=== PATIENT | female | born 1950 | race Caucasian/White ===

== ENCOUNTER 2019-08-20 12:05 | Emergency (ER) | payer MEDICARE ==
[~2019-08-20] VITALS: Ht 165.1 cm; Wt 74.8 kg
[~2019-08-20 12:05] MED LIST: ALBU90OI61 INH; ALPR1 PO; ASCO250CH PO; ASPI81EC PO; ATEN25 PO; AZIT250 PO; CALCAVITDA PO; CEFU250 PO; CHOL10002 PO; CITA20 PO; CODGUAEL PO; CYCL10 PO; FISH1000 PO; FLUSAL1005 IH; GABA100 PO; GLUC500 PO; GLUCHON PO; HYDACE5 PO; IBUP200 PO; IBUP400 PO; LEVFLO500 PO; LORA10ER PO; MELO7.5 PO; METCAR500 PO; MONT10T PO; MULVITMIND PO; OMEP40CA12 PO; OSCAL PO; OXYACE5T PO; PAIN MED; RXCODGUASY PO; SULTRIDS PO; TOCO400 PO; TOLT2 PO; TRAZ50 PO
[2019-08-20 12:41] LABS: Source, Urine Clean Catch
[2019-08-20 12:45] LABS: Blood, Urine 1+ (Neg); Glucose Qualitative, Urine Neg (Neg); Ketones, Urine 1+ (Neg); Leukocyte Esterase, Urine 2+ (Neg); Nitrite, Urine Pos (Neg); Protein, Urine 2+ (Neg); Specific Gravity, Urine 1.015 (1.003-1.022); Urobilinogen, Urine 4+ (Normal)
[2019-08-20 12:57] LABS: Bilirubin, Urine 3+ (Neg)
[2019-08-20 12:58] LABS: Appearance, Urine Clear (Clear); Color, Urine Orange (P-Yellow)
[2019-08-20 13:00] LABS: Squamous Epithelial Cells Few /hpf (Few)
[2019-08-20 13:00] LABS: BASOPHILS ABSOLUTE AUTO 0.07 K/mm3 (0.00-0.23); BASOPHILS PERCENT AUTO 1 % (0-2); EOSINOPHILS ABSOLUTE AUTO 0.23 K/mm3 (0.00-0.68); EOSINOPHILS PERCENT AUTO 2 % (0-6); Hematocrit 42.1 % (33.0-51.0); Hemoglobin 13.6 g/dL (11.5-16.0); IMMATURE GRAN ABSOLUTE AUTO 0.07 K/mm3 (0.00-0.10); IMMATURE GRAN PERCENT AUTO 1 % (0-1); LYMPHOCYTES ABSOLUTE AUTO 1.55 K/mm3 (0.84-5.20); LYMPHOCYTES PERCENT AUTO 11 % (21-46); MONOCYTES ABSOLUTE AUTO 0.92 K/mm3 (0.16-1.47); MONOCYTES PERCENT AUTO 7 % (4-13); Mean Corpuscular HGB 31.6 pg (26.0-34.0); Mean Corpuscular HGB Conc 32.3 g/dL (31.5-36.5); Mean Corpuscular Volume 98 fL (80-100); Mean Platelet Volume 9.4 fL (9.1-12.4); NEUTROPHILS ABSOLUTE AUTO 11.09 K/mm3 (1.96-9.15); NEUTROPHILS PERCENT AUTO 80 % (41-73); Platelet Count 311 K/mm3 (150-400); RDW Coefficient Variation 12.4 % (11.7-14.2); RDW Standard Deviation 45.1 fL (35.1-46.3); Red Blood Cell Count 4.31 M/mm3 (3.80-5.20); White Blood Cell Count 13.93 K/mm3 (4.00-11.30)
[2019-08-20 13:01] LABS: Bacteria Few /hpf; Mucus Light (0-Heavy)
[2019-08-20 13:23] LABS: Albumin, Blood 3.5 g/dL (3.4-5.0); Bilirubin, Total 0.6 mg/dL (0.1-1.0); Bun/Creatinine Ratio 12.6 (12.0-20.0); Calcium, Blood 8.8 mg/dL (8.5-10.1); Creatinine, Blood 1.35 mg/dL (0.40-1.00); Globulin, Blood 3.6 g/dL (2.2-4.0); Potassium, Blood 3.7 mmol/L (3.5-5.5); Total Protein, Blood 7.1 g/dL (6.4-8.2)
[2019-08-20 14:55] LABS: Source, Urine Catheter
[2019-08-20 14:58] LABS: Appearance, Urine Clear (Clear); Blood, Urine Neg (Neg); Color, Urine Yellow (P-Yellow); Glucose Qualitative, Urine Neg (Neg); Ketones, Urine 1+ (Neg); Leukocyte Esterase, Urine 1+ (Neg); Nitrite, Urine Pos (Neg); Protein, Urine Neg (Neg); Urobilinogen, Urine 2+ (Normal)
[2019-08-20 15:21] LABS: Bilirubin, Urine 2+ (Neg)
[2019-08-20 15:35] LABS: Bacteria Mod /hpf; Red Blood Cells, Urine 0-2 /hpf (0-2); Squamous Epithelial Cells Few /hpf (Few)
== END 2019-08-20 19:27 | disposition short-term general hospital (02) ==
LOC: ER 12:05
PROVIDERS: Physician Assistant
DX: N13.6 Pyonephrosis (principal); I10 Essential (primary) hypertension; J44.9 Chronic obstructive pulmonary disease, unspecified; K21.9 Gastro-esophageal reflux disease without esophagitis; Z88.0 Allergy status to penicillin; Z79.899 Other long term (current) drug therapy; Z79.82 Long term (current) use of aspirin; Z79.51 Long term (current) use of inhaled steroids
CPT/HCPCS: 36415; 74176; 80053; 81001; 83605; 83690; 85025; 87040; 87086; 96361; 96365; 96375; 96376; 99285-25; J0744; J1170; J2405; J7030; J7060; P9612

== ENCOUNTER → 2020-09-04 | Outpatient (CLI) | payer MEDICARE | LOC: LAB SHORT 16:11 | DX: R35.0 Frequency of micturition (principal) | CPT/HCPCS: 87077; 87086; 87186 ==

== ENCOUNTER → 2021-01-31 | Outpatient (CLI) | payer MEDICARE, OTHER ==
[~2021-01-31] MED LIST changes: +ABILIFY MYCITE5 M2 PO; +AMLO5 PO; +BUSP5 PO; +LOSA25 PO; +NITR100CA PO; +OXYB5 PO; +TESSALON PERLE100 MG PO; +TIZA4 PO; +TOPI50 PO; +VIIBRYD40 MG PO
== END | disposition home or self-care (01) ==
LOC: LAB 16:36 → LAB SHORT 16:36
DX: N39.0 Urinary tract infection, site not specified (principal)
CPT/HCPCS: 87077; 87086; 87186

== ENCOUNTER → 2021-03-12 | Outpatient (CLI) | payer MEDICARE, OTHER | LOC: LAB SHORT 11:45 → LAB 11:45 | DX: R39.15 Urgency of urination (principal); Z88.0 Allergy status to penicillin | CPT/HCPCS: 87077; 87086; 87147; 87186 ==

== ENCOUNTER 2021-03-18 05:49 | Inpatient (IN) | payer MEDICARE ==
[~2021-03-18] VITALS: Ht 165.1 cm; Wt 74.8 kg
[~2021-03-18 05:49] MED LIST changes: -ABILIFY MYCITE5 M2 PO; -AMLO5 PO; -BUSP5 PO; -LOSA25 PO; -NITR100CA PO; -OXYB5 PO; -TESSALON PERLE100 MG PO; -TIZA4 PO; -TOPI50 PO; -VIIBRYD40 MG PO
[2021-03-18 06:51] LABS: BASOPHILS ABSOLUTE AUTO 0.01 K/mm3 (0.00-0.23); BASOPHILS PERCENT AUTO 0 % (0-2); EOSINOPHILS PERCENT AUTO 0 % (0-6); Hematocrit 43.8 % (33.0-51.0); Hemoglobin 14.3 g/dL (11.5-16.0); IMMATURE GRAN ABSOLUTE AUTO 0.02 K/mm3 (0.00-0.10); IMMATURE GRAN PERCENT AUTO 0 % (0-1); LYMPHOCYTES ABSOLUTE AUTO 0.61 K/mm3 (0.84-5.20); LYMPHOCYTES PERCENT AUTO 11 % (21-46); MONOCYTES ABSOLUTE AUTO 0.37 K/mm3 (0.16-1.47); MONOCYTES PERCENT AUTO 7 % (4-13); Mean Corpuscular HGB 30.3 pg (26.0-34.0); Mean Corpuscular HGB Conc 32.6 g/dL (31.5-36.5); Mean Corpuscular Volume 93 fL (80-100); Mean Platelet Volume 10.5 fL (9.1-12.4); NEUTROPHILS ABSOLUTE AUTO 4.61 K/mm3 (1.96-9.15); NEUTROPHILS PERCENT AUTO 82 % (41-73); Platelet Count 162 K/mm3 (150-400); RDW Coefficient Variation 12.5 % (11.7-14.2); RDW Standard Deviation 42.8 fL (35.1-46.3); Red Blood Cell Count 4.72 M/mm3 (3.80-5.20); White Blood Cell Count 5.62 K/mm3 (4.00-11.30)
[2021-03-18 07:08] LABS: Alanine Aminotransfer (ALT/SGP 25 U/L (12-78); Albumin, Blood 3.4 g/dL (3.4-5.0); Albumin/Globulin Ratio 0.9 (0.8-1.8); Alk Phos 61 U/L (50-136); Anion Gap 8 mmol/L (6-16); Aspartate Aminotrans (AST/SGOT 39 U/L (12-37); Bilirubin, Total 0.6 mg/dL (0.1-1.0); Blood Urea Nitrogen 16 mg/dL (8-24); Bun/Creatinine Ratio 22.5 (12.0-20.0); CO2, Blood 22 mmol/L (21-32); Calcium, Blood 8.7 mg/dL (8.5-10.1); Chloride, Blood 106 mmol/L (98-108); Creatinine, Blood 0.71 mg/dL (0.40-1.00); Globulin, Blood 3.9 g/dL (2.2-4.0); Glomerular Filtration Rate >60 (60-); Glucose, Blood 95 mg/dL (70-99); Potassium, Blood 3.8 mmol/L (3.5-5.5); Sodium, Blood 136 mmol/L (136-145); Total Protein, Blood 7.3 g/dL (6.4-8.2); Troponin I <0.015 ng/mL (0.000-0.040)
[2021-03-18 07:38] LABS: Source, Urine Clean Catch
[2021-03-18 07:45] LABS: Appearance, Urine Clear (Clear); Bilirubin, Urine Neg (Neg); Blood, Urine 4+ (Neg); Color, Urine Yellow (P-Yellow); Glucose Qualitative, Urine Neg (Neg); Ketones, Urine 4+ (Neg); Leukocyte Esterase, Urine 1+ (Neg); Nitrite, Urine Neg (Neg); Protein, Urine 2+ (Neg); Specific Gravity, Urine 1.015 (1.003-1.022); Urobilinogen, Urine NORM (Normal)
[2021-03-18 07:52] LABS: Amorphous Mod (0-Heavy); Bacteria Few /hpf; Squamous Epithelial Cells Mod /hpf (Few)
[2021-03-18] MEDS ORDERED: TIZA4 PO (12:01)
[2021-03-18] MEDS ORDERED: LOSA25 PO (12:01)
[2021-03-18] MEDS ORDERED: BUSP5 PO (12:02)
[2021-03-18] MEDS ORDERED: VIIBRYD40 MG PO (12:02)
[2021-03-18] MEDS ORDERED: TOPI50 PO (12:03)
[2021-03-18] MEDS ORDERED: AMLO5 PO (12:03)
[2021-03-18] MEDS ORDERED: TESSALON PERLE100 MG PO (12:04)
[2021-03-18] MEDS ORDERED: MONT10T PO (12:04)
[2021-03-18] MEDS ORDERED: NITR100CA PO (12:05)
[2021-03-18] MEDS ORDERED: OXYB5 PO (12:05)
[2021-03-18] MEDS ORDERED: ABILIFY MYCITE5 M2 PO (12:05)
--- NOTE | 2021-03-18 16:40 | NUR ---
SHIFT SUMMARY ED ADMIT AT LUNCHTIME. PATIENT SETTLED INTO ROOM. PATIENT DENIES PAIN, NAUSEA, AND SHORTNESS OF BREATH. PATIENT UP SBA TO BR. EATING AND DRINKING WELL. OCCASSIONAL CONFUSION, BED ALARM ON. SON AT BEDSIDE FOR ADMISSION.
[2021-03-19 04:56] LABS: BASOPHILS ABSOLUTE AUTO 0.02 K/mm3 (0.00-0.23); BASOPHILS PERCENT AUTO 0 % (0-2); EOSINOPHILS ABSOLUTE AUTO 0.04 K/mm3 (0.00-0.68); EOSINOPHILS PERCENT AUTO 1 % (0-6); Hematocrit 39.3 % (33.0-51.0); Hemoglobin 12.9 g/dL (11.5-16.0); IMMATURE GRAN ABSOLUTE AUTO 0.04 K/mm3 (0.00-0.10); IMMATURE GRAN PERCENT AUTO 1 % (0-1); LYMPHOCYTES ABSOLUTE AUTO 1.28 K/mm3 (0.84-5.20); LYMPHOCYTES PERCENT AUTO 24 % (21-46); MONOCYTES ABSOLUTE AUTO 0.32 K/mm3 (0.16-1.47); MONOCYTES PERCENT AUTO 6 % (4-13); Mean Corpuscular HGB 30.1 pg (26.0-34.0); Mean Corpuscular HGB Conc 32.8 g/dL (31.5-36.5); Mean Corpuscular Volume 92 fL (80-100); Mean Platelet Volume 10.1 fL (9.1-12.4); NEUTROPHILS ABSOLUTE AUTO 3.58 K/mm3 (1.96-9.15); NEUTROPHILS PERCENT AUTO 68 % (41-73); Platelet Count 156 K/mm3 (150-400); RDW Coefficient Variation 12.5 % (11.7-14.2); RDW Standard Deviation 42.1 fL (35.1-46.3); Red Blood Cell Count 4.29 M/mm3 (3.80-5.20); White Blood Cell Count 5.28 K/mm3 (4.00-11.30)
[2021-03-19 05:27] LABS: Anion Gap 8 mmol/L (6-16); Blood Urea Nitrogen 10 mg/dL (8-24); Bun/Creatinine Ratio 16.4 (12.0-20.0); CO2, Blood 21 mmol/L (21-32); Calcium, Blood 7.9 mg/dL (8.5-10.1); Chloride, Blood 110 mmol/L (98-108); Creatinine, Blood 0.61 mg/dL (0.40-1.00); Glomerular Filtration Rate >60 (60-); Glucose, Blood 88 mg/dL (70-99); Potassium, Blood 3.2 mmol/L (3.5-5.5); Sodium, Blood 139 mmol/L (136-145)
--- NOTE | 2021-03-19 08:02 | NUR ---
[employer]SPORT DRIVER SUMMARY PATIENT MORE AWAKE AROUND MIDNDIGHT, AND WAS MORE ORIENTED TO PLACE AND BITS AND PIECES OF THE SITUATION THAT BROUGHT HER TO THIS PLACE. ADRIENNE HAS BEEN FOCUSED ON GETTING HOME TO HER SON AND HER DOGS, AND MENTIONED THIS QUITE FREQUENTLY THIS MORNING. NO COMPLAINTS OF PAIN OR SOB OR OTHER DISCOMFORTS
--- NOTE | 2021-03-19 17:14 | NUR ---
SUMMARY: PT IS ALERT AND ORIENTED. VSS, FORGETFUL AND SLOW TO RESPOND AT TIMES. BED ALARM ON. PT CONTINUES TO HAVE SOME FREQENCY WITH VOIDING, DENIES DYSURIA. LUNG SOUNDS ARE COURSE AT BASES, SP02 STABLE ON RA, I.S. TAUGHT AND ENCOURAGED. ANTIBIOTICS INFUSED. PT UP WITH SBA, PT REPORTS WEAKNESS. NO ACUTE SAFETY CONCERNS AT THIS TIME. WILL CTM AND REPORT TO NOC RN.
--- NOTE | 2021-03-20 03:34 | NUR ---
SHIFT SUMMARY A/O TO SELF AND FAMILY. PT CONTINUES TO HAVE URGENCY WITH URINATION, DENIES PAIN. CURRENTLY ON 2L VIA NC WITH SATS GREATER THAN 92. MEDICATED FOR NAUSEA AND ANXIETY X1. VSS, NO ACUTE CHANGES AT THIS TIME. BED IN LOWEST POSITION WITH CALL LIGHT IN REACH. WILL CONTINUE TO MONITOR AND REPORT TO ONCOMING RN.
[2021-03-20 05:23] LABS: BASOPHILS ABSOLUTE AUTO 0.03 K/mm3 (0.00-0.23); BASOPHILS PERCENT AUTO 0 % (0-2); EOSINOPHILS PERCENT AUTO 0 % (0-6); Hematocrit 40.1 % (33.0-51.0); Hemoglobin 13.3 g/dL (11.5-16.0); IMMATURE GRAN ABSOLUTE AUTO 0.08 K/mm3 (0.00-0.10); IMMATURE GRAN PERCENT AUTO 1 % (0-1); LYMPHOCYTES ABSOLUTE AUTO 0.69 K/mm3 (0.84-5.20); LYMPHOCYTES PERCENT AUTO 9 % (21-46); MONOCYTES ABSOLUTE AUTO 0.32 K/mm3 (0.16-1.47); MONOCYTES PERCENT AUTO 4 % (4-13); Mean Corpuscular HGB 29.6 pg (26.0-34.0); Mean Corpuscular HGB Conc 33.2 g/dL (31.5-36.5); Mean Corpuscular Volume 89 fL (80-100); Mean Platelet Volume 9.9 fL (9.1-12.4); NEUTROPHILS ABSOLUTE AUTO 6.77 K/mm3 (1.96-9.15); NEUTROPHILS PERCENT AUTO 86 % (41-73); Platelet Count 213 K/mm3 (150-400); RDW Coefficient Variation 12.3 % (11.7-14.2); RDW Standard Deviation 40.9 fL (35.1-46.3); Red Blood Cell Count 4.49 M/mm3 (3.80-5.20); White Blood Cell Count 7.89 K/mm3 (4.00-11.30)
[2021-03-20 05:41] LABS: Albumin, Blood 2.9 g/dL (3.4-5.0); Anion Gap 11 mmol/L (6-16); Blood Urea Nitrogen 7 mg/dL (8-24); Bun/Creatinine Ratio 11.7 (12.0-20.0); CO2, Blood 21 mmol/L (21-32); Calcium, Blood 8.4 mg/dL (8.5-10.1); Chloride, Blood 108 mmol/L (98-108); Glomerular Filtration Rate >60 (60-); Glucose, Blood 103 mg/dL (70-99); Phosphorus, Blood 1.8 mg/dL (2.5-4.9); Potassium, Blood 3.2 mmol/L (3.5-5.5); Sodium, Blood 140 mmol/L (136-145)
[2021-03-20 18:59] LABS: SARS-Cov-2 (COVID-19) PCR, MMC POSITIVE (NEGATIVE)
--- NOTE | 2021-03-20 19:07 | NUR ---
alert and orintated to self and family, unstable walker and does not use a walker on her own, has been calling frequently for assistance, call light in reach, new iv running potassium, 2L via nc, bsr shared with noc nurse
--- NOTE | 2021-03-20 19:25 | NUR ---
PHYSICIAN CONTACT CLIENT PARTNER PROVIDER NOTIFIED PT POSITIVE FOR COVID. NEW ORDERS FOR REMDESIVIR AND DECADRON. PLACED IN ISOLATION.
--- NOTE | 2021-03-21 03:28 | NUR ---
SHIFT SUMMARY A/O TO SELF AND FAMILY ONLY. FIRST DOSE OF REMDESIVIR GIVEN THIS SHIFT. CURRENTLY ON 5L HIGH FLOW NC WITH SATS GREATER THAN 92. PT ATTEMPTING TO GET OUT OF BED SEVERAL TIMES T/O SHIFT, BED ALARM IN PLACE. 1 ASSIST WITH GB TO BSC. VSS, NO ACUTE CHANGES AT THIS TIME. BED IN LOWEST POSITON WITH CALL LIGHT IN REACH. WILL CONTINUE TO MONITOR AND REPORT TO ONCOMING RN.
--- NOTE | 2021-03-21 15:00 | NUR ---
REPORT GIVEN TO SANDY BOX. PT ON 10 L O2 VIA HIGH FLOW NASAL CANNULA. PT O2 SATS IMPROVED WHEN PRONING, PT STRONGLY ENCOURAGED TO PRONE T/O SHIFT. PT WAS CONFUSED AND CONTINUOUSLY GETTING OUT OF BED FIRST HALF OF SHIFT, NOT REDIRECTABLE. MAGALYS VEST IN PLACE FOR SAFETY AND FALL PREVENTION DURING FIRST HALF OF SHIFT, WAS ABLE TO REMOVE SECOND HALF OF SHIFT FOR PRONING.
--- NOTE | 2021-03-21 15:00 | NUR ---
ASSUMED CARE OF PATIENT, REPORT RECEIVED FROM ISAURO RÍOS. PATIENT TRANSFERRED FROM 335 TO ROOM 344. 10 LO2 TO MAINTAIN SATS. VSS. PATIENT ORIENTED TO SELF AND FAMILY. CONFUSED ABOUT THE SITUTATION. ATTEMPTS TO GET OOB WITHOUT ASSISTANCE, FALL PRECAUTIONS IN PLACE. PATIENT VERY REDIRECTABLE AND COOPERATIVE WITH CARE.
--- NOTE | 2021-03-21 17:35 | NUR ---
PATIENT A/O TO SELF AND FAMILY ONLY, VERY IMPULSIVE. ON CAMERA AND FALL PRECAUTIONS IN PLACE. 10L O2 TO MAINTAIN SATS. PATIENT PRONING WHEN SATS DROP WHICH IS HELPING. DENIES ANY PAIN. UP WITH 1 ASSIST TO RESTROOM, CONTINENT OF URINE/STOOL. SPOKE WITH SON THIS EVENING AND UPDATED HIM ON PATIENT STATUS.
[2021-03-22 05:42] LABS: Albumin, Blood 2.7 g/dL (3.4-5.0); Anion Gap 9 mmol/L (6-16); Blood Urea Nitrogen 11 mg/dL (8-24); Bun/Creatinine Ratio 20.8 (12.0-20.0); CO2, Blood 21 mmol/L (21-32); Calcium, Blood 8.6 mg/dL (8.5-10.1); Chloride, Blood 109 mmol/L (98-108); Creatinine, Blood 0.53 mg/dL (0.40-1.00); Glomerular Filtration Rate >60 (60-); Glucose, Blood 150 mg/dL (70-99); Phosphorus, Blood 2.9 mg/dL (2.5-4.9); Potassium, Blood 3.1 mmol/L (3.5-5.5); Sodium, Blood 139 mmol/L (136-145)
--- NOTE | 2021-03-22 06:43 | NUR ---
70 year old female with UTI & AMS has covid 19 positive & room air sat 78% shortly after PT removes oxygen. She calls repeatedly & is a high fall risk on remote camera monitoring with multiple attempts to get out of bed unassisted. Very weak & unsafe to ambulate unassisted. Increasing oxygen needs needed 13 l high flow oxygen to keep sats at greater than 90%. She does remove oxygen multiple times wears no o2 baseline. High flow oxygen needed for covid 19 positive PT with UTI uncomfortable made PT feel like she has a nose bleed. DR SHOEMAKER asked to see PT on medical floor due to increased oxygen demands. PT being transferred to PCU on airvo.
--- NOTE | 2021-03-22 08:04 | NUR ---
PATIENT OXYGEN NEEDS INCREASING TO 13 LITERS WITH FREQUENT DROPS BELOW 85%. REQUEST FOR HOSPITALIST TO EVALUATE PATIENT RESULTED IN HER BEING TRANSFERRED TO PCU 8 TO BE PLACED ON AIRVO. PATIENT DID COMPLAIN ONCE OF A SHARP PLEURITIC PAIN JUST ABOVE NIPPLE LINE AFTER CHOKING ON A SIP OF WATER. NO ADVENTITIOUS SOUNDS OTHER THAN EXTREMELY DIMINISHED ON AUSCULTATION. PAIN RESOLVED QUICKLY AND DID NOT RECUR.
--- NOTE | 2021-03-22 08:15 | NUR ---
PATIENT TRANSFER TO PCU PATIENT TRANSFERED TO PCU AT SHIFT CHANGE DUE TO INCREASING OXYGEN NEEDS. REPORT GIVEN TO RECEIVING ISAURO LUNA. FIDELIA TYSON INFORMED OF TRANSFER.
--- NOTE | 2021-03-22 09:30 | NUR ---
PT CAME IN FROM MEDICAL TO PCU 8. PT IS COVID POSITIVE 1P ASSIST, AND NOW ON 15L OF 02; SATS HIGH 80S TO LOW 90S. SOB ON EXERTION. PT SON IS NEXT TO KIN. PT ALERT ORIENTED X4; HOWEVER PER MEDICAL RN INTERMITTENT CONFUSION. PT SWALLOW PILLS OKAY WITH WATER. DENIES PAIN OR CP. PT ORIENTED IN THE ROOM. BED ALARM IS ON. AND CALL LIGHT WITHIN REACH.
--- NOTE | 2021-03-22 09:40 | NUR ---
CALLED DR FOR LOW BP THIS AM; HELD THE BP MEDS
--- NOTE | 2021-03-22 14:05 | NUR ---
Assisted to bedside commode to void, then up to recliner to watch TV. Chair alarm is on.
--- NOTE | 2021-03-22 17:00 | NUR ---
SHIFT SUMMARY PT ALERT WITH INTERMITTENT CONFUSION. PT IS ON AIRVO ON 40L, SATS ABOVE 90S. SOB ON EXERTION, PT USES BSC AND CALLS APPROPRIATELY. UPDATED THE SON ON THE PHONE TODAY. PT MEDICATED PER EMAR FOR PAINX1. PT STILL RECEIVING REMDESIVIR AND DECADRON. PT IS ON TELE SINUS TACH 100'S. BED/CHAIR ALARM ON; CALL LIGHT WITHIN REACH
--- NOTE | 2021-03-22 18:06 | NUR ---
DR AWARE SINUS TACH 100'S. ENCOURAGE PO INTAKE AND HOLD BP MEDS IF SBP LESS THAN [address]
--- NOTE | 2021-03-23 00:30 | NUR ---
UPDATE UPON CARE ASSUMPTION, PT A&O W/ SPO2 > 90% ON AIRVO @ 40L, FIO2 45%. PT ASSISTED TO LAYING IN PRONE POSITION @ APPROX 2130 UNTIL PT BECAME ANXIOUS 40 MIN LATER, YELLING OUT FOR HELP. PT ASSISTED ONTO HER BACK & IN UPRIGHT POSITION. RT IN RM, INCREASING PT's AIRVO TO 100% FIO2. PT HR UP TO 140's & PT ALSO C/O R HIP PAIN. PT MEDICATED W/ PRN BUSPAR & PRN ZANAFLEX PER EMAR & TIME SPENT WITH PT UNTIL PT CALM AGAIN. PT ABLE TO RELAX & GO TO SLEEP. HR DECREASE TO 70's WHILE SLEEPING. AIRVO @ 60L, FIO2 80%.
[2021-03-23 03:58] LABS: Hemoglobin 12.8 g/dL (11.5-16.0); Mean Corpuscular HGB 30.3 pg (26.0-34.0); Mean Corpuscular HGB Conc 34.6 g/dL (31.5-36.5); Mean Corpuscular Volume 88 fL (80-100); Mean Platelet Volume 9.3 fL (9.1-12.4); Platelet Count 313 K/mm3 (150-400); RDW Coefficient Variation 12.6 % (11.7-14.2); RDW Standard Deviation 40.3 fL (35.1-46.3); Red Blood Cell Count 4.22 M/mm3 (3.80-5.20); White Blood Cell Count 18.03 K/mm3 (4.00-11.30)
[2021-03-23 04:22] LABS: Albumin, Blood 2.5 g/dL (3.4-5.0); Anion Gap 10 mmol/L (6-16); Blood Urea Nitrogen 11 mg/dL (8-24); Bun/Creatinine Ratio 18.7 (12.0-20.0); CO2, Blood 19 mmol/L (21-32); Calcium, Blood 8.7 mg/dL (8.5-10.1); Chloride, Blood 106 mmol/L (98-108); Creatinine, Blood 0.59 mg/dL (0.40-1.00); Glomerular Filtration Rate >60 (60-); Glucose, Blood 117 mg/dL (70-99); Phosphorus, Blood 2.4 mg/dL (2.5-4.9); Potassium, Blood 3.6 mmol/L (3.5-5.5); Sodium, Blood 135 mmol/L (136-145)
--- NOTE | 2021-03-23 06:19 | NUR ---
SHIFT SUMMARY PT A&O W/ EPISODES OF CONFUSION. MONITOR SHOWS ST, HR 100-130's. SPO2 > 90% ON AIRVO TITRATED DURING THE NIGHT, NOW CURRENTLY @ 45L, FIO2 85%. PT W/ EPISODE OF HIGH ANXIETY THIS SHIFT, MEDICATED W/ PRN BUSPAR W/ IMPROVEMENT, SEE PREVIOUS NOTE. NO OTHER EVENTS OVER NIGHT.
--- NOTE | 2021-03-23 19:33 | NUR ---
PT GIVEN FREQUENT REASSURANCE VERBALLY AND BUSPIRONE 2X PER MAR FOR ANXIETY; PT VOIDED SUCCESSFULLY WITH STABLE VS IN BEDPAN SEVERAL TIMES; PT VOIDED IN BSC 1X WITH SIGNIFICANT OXYGEN DESATURATION; AT END OF SHIFT PT ON 45L AND 70%; PT REQUESTED/RECEIVED SEVERAL COMFORT INTERVENTIONS SUCH ICE PACK APPLICATION AND HAIR COMBING; PT UP IN CHAIR FOR SEVERAL HOURS DURING DAY; PT ENCOURAGED TO EAT BUT ONLY CONSUMED HALF OF HER ENSURE ORIGINAL AND 15% OF DINNER; PT DENIES ADDITIONAL CONCERNS AT THIS TIME
--- NOTE | 2021-03-24 00:54 | NUR ---
HOSPITALIST NOTIFIED PT IS CONTINUOUSLY ATTEMPTING TO CRAWL OUT OF BED, PULL OUT HER AIRVO TUBE AND ASKING TO GO TO THE BATHROOM. PT'S SPO2 DECREASES SIGNIFICANTLY WITH ACTIVITY, HR INCREASES UP TO 160'S, PT IS VERY ANXIOUS. 0.5 MG IV ATIVAN ORDERED AT THIS TIME.
--- NOTE | 2021-03-24 03:10 | NUR ---
HOSPITALIST NOTIFIED PT PLACED IN SOFT WRIST RESTRAINTS AT THIS TIME. PT IS CONFUSED & WILL NOT LEAVE HER OXYGEN ON, SPO2 QUICKLY DROPS INTO THE LOW 80'S. PT HAS BEEN REDIRECTED MULTIPLE TIMES, EDUCATION PROVIDED WITH NO SUCCESS. WCTM AT THIS TIME.
[2021-03-24 05:33] LABS: Hemoglobin 15.2 g/dL (11.5-16.0); Mean Corpuscular HGB 30.6 pg (26.0-34.0); Mean Corpuscular HGB Conc 35.3 g/dL (31.5-36.5); Mean Corpuscular Volume 87 fL (80-100); Mean Platelet Volume 9.1 fL (9.1-12.4); Platelet Count 402 K/mm3 (150-400); RDW Coefficient Variation 12.7 % (11.7-14.2); RDW Standard Deviation 40.4 fL (35.1-46.3); Red Blood Cell Count 4.96 M/mm3 (3.80-5.20); White Blood Cell Count 22.05 K/mm3 (4.00-11.30)
--- NOTE | 2021-03-24 05:35 | NUR ---
HOSPITALIST NOTIFIED PT IS NOT TOLERATING BILATERAL SOFT WRIST RESTRAINTS, RT WAS CALLED TO THE ROOM TO PLACE PT ON BIPAP DUE TO PT HYPER VENILATING & REFUSING TO BREATHE THROUGH HER NOSE, SPO2 DECREASED TO LOW 80'S, RESP 50-60'S, HR INCREASED TO 170-180. 0.5 MG IV ATIVAN WAS ORDERED & GIVEN, PT TO BE TRANSFERED TO ICU IF IF HR & RESP STATUS DOES NOT IMPROVE. LAB IN TO DRAW BLOOD AT HIS TIME. HOSPITALIST NOTIFED. HE STATES HE WILL WAIT FOR RESULTS AND CALL IF HE HAS ANY FURTHER ORDERS. PT WAS TAKEN OUT OF WRIST RESTRAINTS AFTER ATIVEN WAS GIVEN DUE TO BIPAP PROTOCOL IN PCU, FLOOR REPRESENTATIVE NOTIFIED OF PT STATUS & HOSPITALIST COMMUNICATION.
[2021-03-24 05:59] LABS: Anion Gap 10 mmol/L (6-16); Blood Urea Nitrogen 10 mg/dL (8-24); Bun/Creatinine Ratio 17.2 (12.0-20.0); CO2, Blood 21 mmol/L (21-32); Calcium, Blood 8.9 mg/dL (8.5-10.1); Chloride, Blood 108 mmol/L (98-108); Creatinine, Blood 0.58 mg/dL (0.40-1.00); Glomerular Filtration Rate >60 (60-); Glucose, Blood 113 mg/dL (70-99); Potassium, Blood 3.5 mmol/L (3.5-5.5); Sodium, Blood 139 mmol/L (136-145)
--- NOTE | 2021-03-24 06:00 | NUR ---
PT IS RESTING QUIETLY AT THIS TIME, RESP 37, BIPAP IS ON, 80% FIO2, SPO2 97%, RT OUTSIDE OF ROOM AT THIS TIME. CALL LIGHT IN REACH, BED ALARM/CAMERA IS ON. FIO2 TITRATED TO 70% PER RT REQUEST. WCTM.
--- NOTE | 2021-03-24 10:45 | NUR ---
TRANSFER TO ICU PT WAS VERY LETHARGIC THIS MORNING, SHE WAS UNABLE TO FOLLOW DIRECTION AND TAKE HER MORNING MEDICATION. PT WAS UNABLE TO FOLLOW DIRECTION FROM RT WELL AND COULD NOT TAKE HER INHALED MEDICATIONS. PT WOULD NOT SPEAK THIS MORNING, SHE WOULD OPEN HER EYES ONLY TO SOUND AND WOULD QUICKLY CLOSE THEM AGAIN. AROUND 0910 ISAURO CUNNINGHAM WAS NOTIFIED BY THE REMOTE MONITORING THAT PT WAS PULLING OFF HER BIPAP MASK, PT'S SATURATION DROPPED TO 78% QUICKLY RN MARISA AND BOAT PILOTISAURO GUSTAFSON PREPARED WITH PPE TO ENTER THE ROOM. PT WAS QUICKLY PLACED BACK ON BIPAP AND RT WAS CALLED. PT CANNOT BE ON MASK AND RESTRAINTS SO RN FAWADO AND RT TRIED TO SWITCH PT BACK TO AIRVO. PT HAD HIGH RESPIRATION RATE 40S-50s AND HR RANGING FROM 140s-180s. PT WAS VERY SHAKING AND APPEARED ANXIOUS BUT AGAIN WOULD NOT VERBALIZE. SHE ANSWERED ONE QUESTION WITH A NO WHEN ASKED IF SHE WAS IN PAIN. DR. CHRISTINA WAS NOTIFIED AND PT WAS GIVEN 0.5MG ATIVAN WHICH HELPED TO EASE HER SOME HOWEVER HER HR WAS STILL HIGH. PT WAS TRANSFERRED TO ICU AT THIS TIME. REPORT WAS GIVEN TO ISAURO OWENS
[2021-03-24 11:34] LABS: PCO2 Arterial 33.7 mmHg (35-45); PO2 Arterial 118 mmHg (80-100); pH Blood Arterial 7.41 (7.35-7.45)
[2021-03-24 12:38] LABS: BASOPHILS ABSOLUTE AUTO 0.05 K/mm3 (0.00-0.23); BASOPHILS PERCENT AUTO 0 % (0-2); EOSINOPHILS ABSOLUTE AUTO 0.01 K/mm3 (0.00-0.68); EOSINOPHILS PERCENT AUTO 0 % (0-6); Hematocrit 40.9 % (33.0-51.0); Hemoglobin 13.9 g/dL (11.5-16.0); IMMATURE GRAN ABSOLUTE AUTO 0.24 K/mm3 (0.00-0.10); IMMATURE GRAN PERCENT AUTO 2 % (0-1); LYMPHOCYTES ABSOLUTE AUTO 0.59 K/mm3 (0.84-5.20); LYMPHOCYTES PERCENT AUTO 4 % (21-46); MONOCYTES ABSOLUTE AUTO 0.27 K/mm3 (0.16-1.47); MONOCYTES PERCENT AUTO 2 % (4-13); Mean Corpuscular HGB 30.2 pg (26.0-34.0); Mean Corpuscular Volume 89 fL (80-100); Mean Platelet Volume 9.1 fL (9.1-12.4); NEUTROPHILS ABSOLUTE AUTO 15.23 K/mm3 (1.96-9.15); NEUTROPHILS PERCENT AUTO 93 % (41-73); Platelet Count 314 K/mm3 (150-400); RDW Coefficient Variation 12.8 % (11.7-14.2); White Blood Cell Count 16.39 K/mm3 (4.00-11.30)
--- NOTE | 2021-03-24 12:56 | NUR ---
ICU TRANSFER / INTUBATION / CENTRAL LINE PLACEMENT Assumed care of pt upon arrival to ICU 6 from PCU 8 at 1020. Telephone report received from Annabelle BOX. Pt transferring to ICU for CPAP/BIPAP with restraints. Increased O2 requirements did not allow for patient to wear high flow therapy as she had previously. Pt transferred to ICU bed from PCU bed using slider sheet and 6 staff. Pt arrived with CPAP 8 and 80% FiO2. SpO2 90% or greater. Lungs diminshed t/o. RR 55-65. No coughing noted. Tachycardic, with irregular rhythm, rate anywhere from 110-170, narrow QRS complex, some artifact from high RR. On assessment, pt's eyes were open, but she was not following commands or speaking. Pt was not moving arms with intent to remove BiPAP mask. All extremities had gross movement. Pt's attends were soiled with urine. Mendoza catheter placed. Pt very rigid and clenched legs together. Dr Harris at bedside, ordered IV metoprolol and ativan. Pt had one peripheral IV that was extremely leaky when flushed and did not provide blood return. Several IV attempts made by RNs in room, including powerglide attempt by social security assessor. 20 ga IV access obtained to left wrist. Used for IV push metoprolol and ativan. Precedex drip started. Dr Harris changed V60 settings from CPAP to BIPAP and made many adjustements that did not relieve pt's respiratory distress, therefore decision was made to intubate patient. Intubation is as follows: 1114: Precedex turned off per v/o of Dr Harris. 20 mg etomidate given. 1115: 20 mg rocuronium given. 1116: 7.5 cm ETT placed, 26 cm ATT. Placement verified with auscultation of breath sounds bilateral. Absence of sound when auscultating over stomach. Positive color change on colormetric CO2 detector. VSS. 1119: Propofol started at 35 mcg/kg/min. Ventilator settings ACVC 16/340/10/100%. SpO2 90% or greater. 1133: Propofol stopped. NS bolus started due to hypotension. 1137: Hypotension persists. Levophed ordered from pharmacy. 100 mcg phenylephrine given. 1138: FiO2 decreased to 90%. SpO2 90% or greater. 1150: FiO2 decreased to 70%. VSS. After intubation, central line placed by Dr Harris. PRE K SPECIAL EDUCATION TEACHER, Annabelle, attempted to contact family regarding ICU transfer, but they did not answer the phone.
[2021-03-24 12:59] LABS: Source, Urine Catheter
[2021-03-24 13:01] LABS: Appearance, Urine Clear (Clear); Bilirubin, Urine Neg (Neg); Blood, Urine 1+ (Neg); Color, Urine Yellow (P-Yellow); Glucose Qualitative, Urine Neg (Neg); Ketones, Urine 1+ (Neg); Leukocyte Esterase, Urine Neg (Neg); Nitrite, Urine Neg (Neg); Protein, Urine 1+ (Neg); Urobilinogen, Urine NORM (Normal)
[2021-03-24 13:14] LABS: Bacteria Rare /hpf; Red Blood Cells, Urine 0-2 /hpf (0-2); Squamous Epithelial Cells Mod /hpf (Few); White Blood Cells, Urine 0-2 /hpf (0-5)
--- NOTE | 2021-03-24 13:51 | NUR ---
UPDATE At this time, pt is receiving 40 mcg/kg/min propofol and 0.7 mcg/kg/hr precedex. Pt has also received IV push fentanyl. High levels of sedation needed as pt was tachypnic, RR 40s, and fighting ventilator. Dr Harris aware. Pt also became hypotensive again as sedation was increased. Currently receiving levophed at 10 mcg/min. Pt received 1L bolus of NS. Currently, RR 32. SpO2 97%. Ventilator settings ACVC 16/340/10/70%.
--- NOTE | 2021-03-24 18:31 | NUR ---
SUMMARY At this time, pt is receiving propofol at 40 mcg/kg/min and precedex was recently decreased from 1.4 mcg/kg/hr to 0.7 mcg/kg/hr as pt's HR is in the 50s. BP stable. Levophed recently decreased from 5 mcg/min to 4 mcg/min. Current ventilator settings ACVC 16/340/10/65%. SpO2 90%. Per Dr Harris, PEEP can be titrated down when FiO2 is down to 50%. Pt was febrile at arrival but this has resolved without medication intervention. Pt did not have any visitors today, but this RN and Dr Harris spoke to pt's son to update. Will continue to closely monitor until care handoff and bedside report with oncoming RN.
--- NOTE | 2021-03-24 21:08 | NUR ---
ASSUMED CARE AT 1900 PT LAYING IN BED INTUBATED WITH VENT SETTINGS AC 16, TV 340, PEEP 10, FIO2 60%; SCANT AMOUNT OF SECREATIONS. PT REACTIVE TO PAINFUL STIMULI AND NOXIOUS STIMULI; WEAK GAG AND COUGH; PROPOFOL INFUSING AT 40MCG/KG/MIN; PRECEDEX INFUSING AT 0.5MCG/KG/HR; SEE FLOW SHEET FOR TITRATIONS. AFEBRILE. HR 50-60'S. SBP 110-120; MAP >65; LEVOPHED INFUSING AT 4MCG/MIN. OG TO LIS; BILE OUTPUT NOTED. URBANO PATENT AND DRAINING TO GRAVITY. SEE SHIFT ASSESSMENT FOR FULL ASSESSMENT.
--- NOTE | 2021-03-25 00:08 | NUR ---
UPDATE ATTEMPTED TO DECREASE PROPOFOL TO 35 FROM 40 AND PT RR INCREASED TO 35-40'S. INCREASED PROPOFOL BACK TO 40MCG/KG/MIN. PRECEDEX ON SB D/T BRADYCARDIA. STRONGER GAG AND COUGH REFLEX FOR 0000 REASSESMENT RESULTING IN PT RR CLIMBING TO 40-45'S. PRN FENTANYL AVAILABLE AND GIVEN. RR NOW 30. WILL CONT TO MONITOR.
[2021-03-25 04:47] LABS: BASOPHILS ABSOLUTE AUTO 0.06 K/mm3 (0.00-0.23); BASOPHILS PERCENT AUTO 0 % (0-2); EOSINOPHILS ABSOLUTE AUTO 0.48 K/mm3 (0.00-0.68); EOSINOPHILS PERCENT AUTO 2 % (0-6); Hematocrit 42.1 % (33.0-51.0); Hemoglobin 14.5 g/dL (11.5-16.0); Mean Corpuscular HGB 30.1 pg (26.0-34.0); Mean Corpuscular HGB Conc 34.4 g/dL (31.5-36.5); Mean Corpuscular Volume 88 fL (80-100); Mean Platelet Volume 8.9 fL (9.1-12.4); Platelet Count 325 K/mm3 (150-400); RDW Coefficient Variation 12.9 % (11.7-14.2); RDW Standard Deviation 41.3 fL (35.1-46.3); Red Blood Cell Count 4.81 M/mm3 (3.80-5.20); White Blood Cell Count 20.45 K/mm3 (4.00-11.30)
[2021-03-25 04:49] LABS: IMMATURE GRAN ABSOLUTE AUTO 0.32 K/mm3 (0.00-0.10); IMMATURE GRAN PERCENT AUTO 2 % (0-1); LYMPHOCYTES ABSOLUTE AUTO 0.92 K/mm3 (0.84-5.20); LYMPHOCYTES PERCENT AUTO 5 % (21-46); MONOCYTES ABSOLUTE AUTO 0.17 K/mm3 (0.16-1.47); MONOCYTES PERCENT AUTO 1 % (4-13); NEUTROPHILS PERCENT AUTO 91 % (41-73)
[2021-03-25 05:06] LABS: Anion Gap 10 mmol/L (6-16); Blood Urea Nitrogen 10 mg/dL (8-24); Bun/Creatinine Ratio 21.6 (12.0-20.0); CO2, Blood 22 mmol/L (21-32); Calcium, Blood 8.2 mg/dL (8.5-10.1); Chloride, Blood 109 mmol/L (98-108); Creatinine, Blood 0.46 mg/dL (0.40-1.00); Glomerular Filtration Rate >60 (60-); Glucose, Blood 114 mg/dL (70-99); Potassium, Blood 2.8 mmol/L (3.5-5.5); Sodium, Blood 141 mmol/L (136-145)
--- NOTE | 2021-03-25 05:52 | NUR ---
END OF SHIFT SUMMARY PT CONT TO BE INTUBATED WITH VENT SETTINGS AC 16, TV 340, PEEP 8, FIO2 40%; SCANT AMOUNT OF ETT SECREATIONS; CHALLENGING TO SLOW TACHYPNEIA THIS SHIFT. AT 0100 PT HAD COUGHING EPISODE AND RR WENT FROM 28-32 TO 35-40; PROPOFOL TITRATED UP, PRECEDEX RESTARTED, AND PRN FENTANYL GIVEN. RR DECREASES TO LOW 20 AFTER FENTANYL GIVEN BUT ONLY LASTS 20MIN UNTIL RR CLIMBS BACK UP TO 35-40'S. PRN FENTANYL GIVEN X5 WITH SAME EFFECT EACH TIME. PT REACTIVE TO NOXIOUS STIMULI; COUGH AND GAG WEAK; PROPOFOL INFUSING AT 50MCG/KG/MIN; PRECEDEX INFUSING AT 1MCG/KG/HR. HR 50'S AT THE BEGINING OF SHIFT; PRECEDEX TITRATED DOWN TO SB AND THAN STARTED BACK UP AFTER 0100 COUGHING EPISODE; HR TOLERATING PRECEDEX AT 1MCG/KG/HR WITH HR 70-80'S. SBP 100-120; LEVOPHED INFUSING AT 6MCG/MIN. OG TO LIS; BILE OUTPUT NOTED. URBANO PATENT AND DRAINING TO GRAVITY; 350ML OUTPUT THIS SHIFT. CENTRAL LINE TO RT IJ DRESSING C/D/I. WILL REPORT TO AM RN WHEN AVAILABLE.
--- NOTE | 2021-03-25 10:00 | NUR ---
ASSUMPTION OF CARE PT INTUBATED AND SEDATED WITH PROPOFOL AND PRECEDEX, SEE FLOWSHEEET FOR RATES AND TITRATIONS. PT DOES NOT OPEN EYES OR FOLLOW COMMANDS, WITHDRAWS FROM PAINFUL STIMULI, VENT SET TO AC 16/340 PEEP 8 AND FiO2 40%, RESPIRATORY RATE 35-40'S, PRN FENTANYL ADMINISTERED, IMPROVEMENT IN RESP RATE TO 29-35. MONITOR SHOWS SINUS RHYTHM, FEW PAC'S, HR 70'S-80'S, LEVO GTT INFUSING TO MAINTAIN MAPS> 65. OG IN PLACE TO LIS, THEN CLAMPED AFTER MED ADMINISTRATION. URBANO IN PLACE WITH LOW URINE OUTPUT. UPDATED DR ARANDA REGARDING AM LABS AND FREQUENCY OF FENTANYL PUSHES, OG TO REMAIN CLAMPED AT THIS TIME AND NEW ORDER FOR FENTANYL HOSPITAL COOK.
--- NOTE | 2021-03-25 18:30 | NUR ---
SHIFT SUMMARY PT REMAINS INTUBATED AND SEDATED, NO CHANGES TO VENT SETTINGS THIS SHIFT. FENTANYL SHOP HAND STARTED THIS SHIFT @ 100mcg/hr, PT NO LONGER RESPONDING TO PAINFUL STIMULI WITH 1600 ASSESSMENT, PROPOFOL AND PRECEDEX TITRATED DOWN, DISCUSSED WITH DR ARANDA AND FENTANYL SHOP HAND ORDER CHANGED TO 50mcg/hr. MONITOR SHOWS SINUS RHYTHM WITH HR 70'S-80'S, LEVO GTT TITRATED DOWN TO 1mcg/min TO MAINTAIN MAPS> 65. OG REMAINS IN PLACE, VHP TF INITIATED THIS SHIFT, TRICKLE FEED @ 10ml/hr, NO BM THIS SHIFT. URBANO REMAINS IN PLACE, INCREASED OUTPUT THROUGHOUT SHIFT. SPOKE WITH PTS SON OVER THE PHONE, UPDATED ON PTS STATUS.
--- NOTE | 2021-03-25 22:00 | NUR ---
ASSUMED CARE AT 1900 PT LAYING IN BED INTUBATED WITH VENT SETTINGS AC 16, TV 340, PEEP 8, FIO2 40%; SCANT AMOUNT OF SECREATIONS NOTED; RR LOW 20'S. PT REACTIVE TO PAINFUL STIMULI AND NOXIOUS STIMULI; GAG AND COUGH PRESENT; PROPOFOL INFUSING AT 15MCG/KG/MIN; PRECEDEX INFUSING AT 0.3MCG/KG/HR; FENTANYL INFUSING AT 50MCG/HR. AFEBRILE. HR 60-70'S. SBP 110-130; LEVOPHED INFUSING AT 1MCG/MIN. VHP INFUSING AT 10ML/HR (GOAL) WITH 30ML WATER FLUSHES Q4HR. URBANO PATENT AND DRAINING TO GRAVITY. SEE SHIFT ASSESSMENT FOR FULL ASSESSMENT.
[2021-03-26 04:26] LABS: Hematocrit 38.6 % (33.0-51.0); Mean Corpuscular HGB Conc 33.7 g/dL (31.5-36.5); Mean Corpuscular Volume 89 fL (80-100); Mean Platelet Volume 9.2 fL (9.1-12.4); Platelet Count 281 K/mm3 (150-400); RDW Coefficient Variation 13.1 % (11.7-14.2); RDW Standard Deviation 43.2 fL (35.1-46.3); Red Blood Cell Count 4.34 M/mm3 (3.80-5.20); White Blood Cell Count 13.68 K/mm3 (4.00-11.30)
[2021-03-26 04:44] LABS: Alanine Aminotransfer (ALT/SGP 39 U/L (12-78); Albumin, Blood 1.8 g/dL (3.4-5.0); Albumin/Globulin Ratio 0.5 (0.8-1.8); Alk Phos 65 U/L (50-136); Anion Gap 7 mmol/L (6-16); Aspartate Aminotrans (AST/SGOT 33 U/L (12-37); Bilirubin, Total 0.7 mg/dL (0.1-1.0); Blood Urea Nitrogen 12 mg/dL (8-24); Bun/Creatinine Ratio 25.2 (12.0-20.0); CO2, Blood 23 mmol/L (21-32); Calcium, Blood 8.2 mg/dL (8.5-10.1); Chloride, Blood 111 mmol/L (98-108); Creatinine, Blood 0.48 mg/dL (0.40-1.00); Globulin, Blood 3.7 g/dL (2.2-4.0); Glomerular Filtration Rate >60 (60-); Glucose, Blood 166 mg/dL (70-99); Sodium, Blood 141 mmol/L (136-145); Total Protein, Blood 5.5 g/dL (6.4-8.2)
--- NOTE | 2021-03-26 06:15 | NUR ---
END OF SHIFT SUMMARY NO ACUTE EVENTS OVERNIGHT. PT CONT TO BE INTUBATED WITH VENT SETTINGS AC 16, TV 340, PEEP 8, FIO2 40%, RR 20-30'S; RR INCREASED TO LOW 40 WHEN ATTEMPTING TO TITRATE PROPOFOL DOWN. PT REACTIVE TO NOXIOUS STIMULI AND OPENS EYES SPONTANIOUSLY; PT DOES NOT TRACK OR FOLLOW DIRECTIONS AND BLINKS SLOWLY BUT EVENTUALLY CLOSES EYES WHEN NOT STIMULATED; PROPOFOL INFUSING AT 15MCG/KG/MIN; PRECEDEX INFUSING AT 0.3MCG/KG/HR; FENTANYL GTT INFUSING AT 50MCG/HR. AFEBRILE. HR 60-80'S. SBP 100-130; LEVOPHED ON SB. VHP INFUSING VIA OG AT 10ML/HR (GOAL) WITH 30ML WATER FLUSHES Q4HR; RESIDUALS <100ML. URBANO PATENT AND DRAINING TO GRAVITY. MEPILEX DRESSING ON COCCYX C/D/I. CENTRAL LINE TO RT IJ DRESSING C/D/I. WILL REPORT TO AM RN WHEN AVAILABLE.
--- NOTE | 2021-03-26 07:30 | NUR ---
ASSUMED CARE: PT INTUBATED WITH SETTINGS AC 16/340/40%/8. SEDATED WITH PROPOFOL AT 15MCG/PRECEDEX AT 0.3MCG AND FENTANYL GTT AT 50MCG/HR. OG TUBE IN PLACE WITH FEEDING AT GOAL, TEMP URBANO IN PLACE PUTTING OUT CLEAR YELLOW URINE. BILATERAL WRIST RESTRAINTS. SEDATION VACATION WITH PROPOFOL ON SB AND PT ONLY WINCED TO NOXIOUS STIMULI, NO PURPOSEFUL MOVEMENT. SOME ORAL SECRETIONS WITH ORAL CARE. NO ACUTE NEEDS OR CONCERNS AT THIS TIME.
[2021-03-26 12:20] LABS: Vancomycin, Trough 18.2 ug/mL (5.0-10.0)
--- NOTE | 2021-03-26 14:15 | NUR ---
PT'S RESPIRATIONS STARTED STACKING AFTER REPOSITIONING. PER NIGHT RN, STACKING WAS DUE TO NEED FOR SEDATIONS. DISCUSSED WITH DR BOWMAN DUE TO PT HAVE MINIMAL NEURO RESPONSE WITH THE SEDATION IN PLACE. DR BOWMAN AT BEDSIDE AT THIS TIME CHANGING VENT SETTINGS. STATES SHE FEELS VENT SETTINGS NEED TO BE CHANGED BEFORE ADDING MORE SEDATION
--- NOTE | 2021-03-26 15:04 | NUR ---
DR BOWMAN WENT TO BEDSIDE AND INCREASED TV TO 400. DR INSTRUCTED TO START TITRATING SEDATION DOWN SO THAT WEANING TRIALS CAN START. PRECEDEX OFF WITH PROPOFOL AT 25MCG AND FENTANYL AT 50MCG/KG. LUNG SOUND CLEAR AT THIS TIME.
--- NOTE | 2021-03-26 18:32 | NUR ---
SHIFT SUMMARY: PT REMAINS INTUBATED WITH AC AT 14/400/40%/8. SEDATED WITH PROPOFOL AT 25MCG AND FENTANYL GTT AT 50MCG/KG. TF INCREASED TO 25 ML/HR PER ORDERS FROM DIETARY. URBANO CATH IN PLACE. PLANS TO START WEANING TOMORROW AND KEEP SEDATION DOWN SO THAT PT STARTS TO WAKE UP. NO FURTHER CHANGES OR NEEDS AT THIS TIME.
--- NOTE | 2021-03-26 19:30 | NUR ---
ASSUMPTION OF CARE RECEIVED REPORT FROM RASHAD BOX, ASSUMED CARE OF PATIENT. PATIENT SEDATED WITH 20MCG/KG OF PROPOFOL AND 50MCG/HR OF FENTANYL. OPENS EYES TO PHYSICAL STIMULI, BUT DOES NOT FOLLOW COMMANDS OR NOTE ANY PURPOSEFUL MOVEMENTS. INTUBATED WITH VENT SETTINGS AC16/400/8/40% WITH SATS ABOVE 95%. TF INFUSING VIA OG AT GOAL OF 25ML/HR. URBANO CATHETER PATENT AND DRAINING. WILL REVIEW ORDERS AND TREAT PRESCRIBED.
--- NOTE | 2021-03-27 | NUR ---
REASSESSMENT NO ACUTE CHANGES FROM PREVIOUS ASSESSMENT. NO CHANGES FROM VENT SETTINGS. VITALS REMAIN STABLE.
[2021-03-27 06:09] LABS: BASOPHILS ABSOLUTE AUTO 0.02 K/mm3 (0.00-0.23); BASOPHILS PERCENT AUTO 0 % (0-2); EOSINOPHILS PERCENT AUTO 0 % (0-6); Hematocrit 35.2 % (33.0-51.0); Hemoglobin 11.6 g/dL (11.5-16.0); IMMATURE GRAN ABSOLUTE AUTO 0.33 K/mm3 (0.00-0.10); IMMATURE GRAN PERCENT AUTO 2 % (0-1); LYMPHOCYTES ABSOLUTE AUTO 0.74 K/mm3 (0.84-5.20); LYMPHOCYTES PERCENT AUTO 5 % (21-46); MONOCYTES ABSOLUTE AUTO 0.46 K/mm3 (0.16-1.47); MONOCYTES PERCENT AUTO 3 % (4-13); Mean Corpuscular HGB 29.8 pg (26.0-34.0); Mean Corpuscular Volume 91 fL (80-100); Mean Platelet Volume 9.6 fL (9.1-12.4); NEUTROPHILS PERCENT AUTO 89 % (41-73); Platelet Count 322 K/mm3 (150-400); RDW Coefficient Variation 13.4 % (11.7-14.2); RDW Standard Deviation 44.8 fL (35.1-46.3); Red Blood Cell Count 3.89 M/mm3 (3.80-5.20); White Blood Cell Count 13.75 K/mm3 (4.00-11.30)
[2021-03-27 07:03] LABS: Anion Gap 7 mmol/L (6-16); Blood Urea Nitrogen 21 mg/dL (8-24); Bun/Creatinine Ratio 40.2 (12.0-20.0); CO2, Blood 24 mmol/L (21-32); Calcium, Blood 8.2 mg/dL (8.5-10.1); Chloride, Blood 111 mmol/L (98-108); Creatinine, Blood 0.52 mg/dL (0.40-1.00); Glomerular Filtration Rate >60 (60-); Glucose, Blood 160 mg/dL (70-99); Magnesium, Blood 2.3 mg/dL (1.6-2.4); Potassium, Blood 3.9 mmol/L (3.5-5.5); Sodium, Blood 142 mmol/L (136-145)
--- NOTE | 2021-03-27 07:16 | NUR ---
SHIFT SUMMARY NO ACUTE CHANGES THROUGH SHIFT. VENT SETTINGS CURRENTLY AC OF 7 PEEP OF 8 AND FIO2 40%. PROPOFOL IS OFF WITH PRECEDEX AT 0.2MCG/KG AND FENTANYL OF 50MCG/HR. PATIENT DOES NOT FOLLOW COMMANDS, BUT IS WAKING UP WITH A STRONG COUGH. REPORT WAS GIVEN TO SHELBI BOX.
--- NOTE | 2021-03-27 09:57 | NUR ---
AM NOTE... ASSUMED CARE OF PT AT 0700, PT IS INTUBATED AND SEDATED WITH PRECEDEX AT 0.2MCG AND FENTANYL FLAT BREAKDOWN PROCESSOR AT 50MCG. PT'S VENT SETTINGS ARE PRESSURE SUPPORT AT 7/8 AND 40% PT'S RR ARE EVEN AND UNLABORED 11-16. L/S COARSE T/O AND DIM IN THE BASES, SMALL AMOUNT OF THICK VARGAS SECRETIONS SUCTIONED FROM THE ET TUBE. ET TUBE IS 7.5 AND 26 AT THE TEETH. PT'S EYES ARE OPEN AND SHE IS ABLE TO BLINK ON COMMAND AND WEAKLY SQUEEZE HER LEFT HAND. PT IS IN NSR IN THE 70'S-80'S BUT STARTING TO TREND UP TO THE LOW 100'S, PT'S BP STABLE BUT ALSO STARTING TO TREND UP WITH SBPs 140-160'S. PT HAS DEPENDENT EDEMA TO HER BUE. BT PRESENT AND HYPOACTIVE, ABD IS SOFT TO PALP. PT'S URBANO IS PATENT AND DRAINING TO GRAVITY. AT APROX 0800 THE PT'S HR STARTED TO INCREASE TO THE 100'S-120'S, PT'S RR INCREASED TO THE HIGH 20'S-30'S AND WORK OF BREATHING INCREASED. RT ANITRA WAS CALLED AND CAME INTO THE ROOM TO SWITCH THE PT BACK TO AC: 16/400/8/40%, PT'S PRECEDEX WAS INCREASED FROM 0.2 TO 0.8. PT'S HR AND BP CONTINUED TO TREND UP WITH SBPs IN THE 160'S-190'S AND HR IN THE 130'S-180'S. THE PT WAS PUT BACK ON PROPOFOL AT 20 MCG, AN EKG WAS OBTAINED PER ORDERS. ONCE THE PROPOFOL WAS STARTED THE PT'S HR CAME DOWN ALONG WITH HER BP, CURRENTLY THE PT'S BP IS 93/58. WILL CONTINUE TO MONITOR.
[2021-03-27 14:24] LABS: Vancomycin, Trough 12.7 ug/mL (5.0-10.0)
--- NOTE | 2021-03-27 17:30 | NUR ---
SHIFT SUMMARY... NO ACUTE NEGATIVE CHANGES NOTED SINCE PREVIOUS NOTES. ONCE THE PT WAS BACK ON PROPOFOL HER HR IMPROVED WELL HER BP. PT HAS BEEN COMFORTABLE T/O THE SHIFT ON THE FENTANYL GTT AT 50MCG, PRECEDEX AT 0.4MCG AND PROPOFOL AT 15MCG. PT'S VS HAVE BEEN STABLE. PT'S URBANO IS PATENT AND DRAINING TO GRAVITY. PT HAS NOT HAD A BM THIS SHIFT. PT HAS HAD VERY MINIMAL ORAL AND TRACHEAL SECRETIONS NOTED THIS SHIFT. PT'S TUBE FEED CONTINUES TO RUN AT 25MLS/HR WHICH IS THE GOAL RATE, NO RESIDUALS NOTED THIS SHIFT. PER DR. BOWMAN SHE WANTS TO START THE WEAN AT APROX 0830 TOMORROW SO THAT SHE CAN SEE HOW THE PT DOES DURING THE WEAN, RT WAS NOTIFIED OF THIS. WILL CONTINUE TO MONITOR UNTIL REPORT IS GIVEN TO ONCOMING RN.
--- NOTE | 2021-03-27 19:21 | NUR ---
SHIFT SUMMARY RECEIVED REPORT FROM SHELBI RN, ASSUMED CARE OF PATIENT. PATIENT INTUBATED WITH 7.5, 26 CM AT THE LIP, VENT SETTINGS AC 16/400/8/40%. 02 SATS 96%. TF INFUSING AT GOAL OF 25ML/HR VIA OG. URBANO CATHETER PATENT AND DRAINING. NO S/S OF DISTRESS. SEDATION OF FENTANYL 50MCG/HR, PROPOFOL 15MCG/KG, AND PRECEDEX OF 0.4MCG/KG. WILL REVIEW ORDERS AND TREAT PRESCRIBE.
[2021-03-28 04:09] LABS: BASOPHILS ABSOLUTE AUTO 0.04 K/mm3 (0.00-0.23); BASOPHILS PERCENT AUTO 0 % (0-2); EOSINOPHILS ABSOLUTE AUTO 0.01 K/mm3 (0.00-0.68); EOSINOPHILS PERCENT AUTO 0 % (0-6); Hematocrit 36.6 % (33.0-51.0); Hemoglobin 12.2 g/dL (11.5-16.0); IMMATURE GRAN ABSOLUTE AUTO 0.51 K/mm3 (0.00-0.10); IMMATURE GRAN PERCENT AUTO 5 % (0-1); LYMPHOCYTES ABSOLUTE AUTO 0.92 K/mm3 (0.84-5.20); LYMPHOCYTES PERCENT AUTO 8 % (21-46); MONOCYTES ABSOLUTE AUTO 0.77 K/mm3 (0.16-1.47); MONOCYTES PERCENT AUTO 7 % (4-13); Mean Corpuscular HGB 30.1 pg (26.0-34.0); Mean Corpuscular HGB Conc 33.3 g/dL (31.5-36.5); Mean Corpuscular Volume 90 fL (80-100); Mean Platelet Volume 9.1 fL (9.1-12.4); NEUTROPHILS ABSOLUTE AUTO 9.19 K/mm3 (1.96-9.15); NEUTROPHILS PERCENT AUTO 80 % (41-73); Platelet Count 315 K/mm3 (150-400); RDW Coefficient Variation 13.2 % (11.7-14.2); RDW Standard Deviation 43.9 fL (35.1-46.3); Red Blood Cell Count 4.05 M/mm3 (3.80-5.20); White Blood Cell Count 11.44 K/mm3 (4.00-11.30)
[2021-03-28 04:25] LABS: Anion Gap 7 mmol/L (6-16); Blood Urea Nitrogen 25 mg/dL (8-24); Bun/Creatinine Ratio 53.5 (12.0-20.0); CO2, Blood 23 mmol/L (21-32); Calcium, Blood 8.1 mg/dL (8.5-10.1); Chloride, Blood 111 mmol/L (98-108); Creatinine, Blood 0.47 mg/dL (0.40-1.00); Glomerular Filtration Rate >60 (60-); Glucose, Blood 139 mg/dL (70-99); Magnesium, Blood 2.4 mg/dL (1.6-2.4); Potassium, Blood 3.9 mmol/L (3.5-5.5); Sodium, Blood 141 mmol/L (136-145)
--- NOTE | 2021-03-28 06:28 | NUR ---
SHIFT SUMMARY PATIENT INTUBATED WITH VENT AC 16/400/8/35%, SEDATED WITH PROPOFOL, PRECEDEX AND FENTANYL. PATIENT AWAKENS, FOLLOWS COMMANDS SLOWLY AND WEAKLY. COUGHS AGAINST ETT AND LARGE AMOUNT OF THICK, CLEAR SPUTUM ARE SUCTIONING. FIO2 WAS DECREASED FROM 40 TO 35% AT START OF SHIFT, 02 SATS REMAINED AT OR ABOVE 93%. AT 0530, PATIENT AWAKE, COUGHING CONTINUOUSLY, HEART RATE AND BLOOD PRESSURE INCREASING. RN TO ROOM AND INCREASED SEDATION. NOTED BOWEL MOVEMENT AT THIS TIME, REPOSITIONED AND CLEANED CHARTED. PATIENT BEGAN TO CALM, SEDATION DECREASED TO INITIAL RATES. TF REMAIN AT GOAL OF 25ML/HR VIA OG TUBE WITH RESIDUALS AVERAGING 50-100ML. URBANO PATENT AND DRAINING CLEAR, YELLOW URINE WITH ADEQUATE OUTPUT. WILL CONTINUE TO MONITOR AND REPORT TO ONCOMING RN.
--- NOTE | 2021-03-28 09:34 | NUR ---
AM NOTE... ASSUMED CARE OF PT AT 0700, PT IS INTUBATED AND SEDATED WITH VENT SETTINGS AT AC/VC: 16/400/8/40% WITH O2 SATS>90%. PT IS SEDATED ON PRECEDEX AT 0.4, PROPOFOL AT 10MCG AND FENTANYL GTT RUNNING AT 50MCG/HR. PT OPENS EYES TO SOME VERBAL STIMULATION BUT PT IS UNABLE TO BLINK OR FOLLOW COMMANDS AT THIS TIME. L/S CLEAR T/O, THERE IS A SMALL AMOUNT OF THICK VARGAS SECRETIONS FROM THE ET TUBE THIS AM, THIS IS A LITTLE BIT MORE THAN YESTERDAY. BT PRESENT AND HYPERACTIVE, ABD IS SOFT TO PALP. PT HAS DEPENDENT EDEMA TO HER BUE. PT'S URBANO IS PATENT AND DRAINING TO GRAVITY. AT 0900 DR. BOWMAN IS IN THE ROOM, PT'S VENT SETTINGS WERE SET FROM AC/VC TO SPONTAINOUS AT 8/10 AND 35%, PT'S O2 SATS ARE >90% AND RR HAS BEEN IN THE 20'S. PT'S WORK OF BREATHING HAS IMPROVED SINCE SHE WAS SWITCHED TO SPONTAINOUS. WILL CONTINUE TO MONITOR.
--- NOTE | 2021-03-28 18:44 | NUR ---
SHIFT SUMMARY... NO ACUTE NEGATIVE CHANGES NOTED THIS SHIFT. PT SPENT APROX 4 HOURS ON SPONTAINIOUS THIS AFTERNOON AND DID WELL UNTIL 184, PT HAD GOTTEN A DOSE OF 0.25MG OF IV ATIVAN AT THE START OF THE WEAN AND THIS HELPED GREATLY. PT'S BP DROPS EASILY WITH INCREASED SEDATION. PT'S URBANO IS PATENT AND DRAINED 1500MLS OF CLEAR YELLOW URINE THIS SHIFT. PT'S RECTAL TUBE IS PATENT AND DRAINED 400MLS OF BROWN LIQUID STOOLS. PT TUBE FEEDING TUBING WAS CHANGED OUT THIS SHIFT WELL. WILL CONTINUE TO MONITOR UNTIL REPORT IS GIVEN TO ONCOMING RN.
--- NOTE | 2021-03-28 20:15 | NUR ---
ASSUMED CARE PATIENT LYING IN BED INTUBATED AND SEDATED WITH FENTANYL GTT, PROPOFOL, AND PRECEDEX. NO FAMILY OR PERSONAL BELONGINGS VISIBLE IN ROOM. SOFT WRIST RESTRAINTS IN PLACE TO PROTECT VITAL LINES. TF INFUSING AT GOAL RATE OF 25ML/HR WITH 30ML WATER FLUSH Q4H. LEVOPHED AND NS X 2 INFUSING INTO CENTRAL LINE. PATIENT APPEARS RESTING AND CALM AT THIS TIME.
[2021-03-29 04:15] LABS: Magnesium, Blood 2.2 mg/dL (1.6-2.4); Phosphorus, Blood 2.1 mg/dL (2.5-4.9)
[2021-03-29 04:35] LABS: Potassium, Blood 3.3 mmol/L (3.5-5.5)
--- NOTE | 2021-03-29 04:48 | NUR ---
CALLED MD CALL PLACED TO DR. BOWMAN REGARDING POTASSIUM RESULT OF 3.3 AND PHOSPHORUS OF 2.1. ORDER RECEIVED.
--- NOTE | 2021-03-29 06:03 | NUR ---
SHIFT SUMMARY PATIENT REMAINED INTUBATED ON AC 16/450/8/45% AND SEDATED ON PROPOFOL, PRECEDEX, AND FENTANYL THROUGHOUT SHIFT. PATIENT TOLERATED VENT WELL UNLESS TURNED ONTO LEFT SIDE CAUSING INCREASED BLOOD PRESSURE, PULSE, AND RESPIRATIONS. PATIENT CALMED WITH REPOSITIONING AND ATIVAN 0.25MG IV. PATIENT WAS STARTED ON LEVOPHED AT THE BEGINNING OF THE SHIFT AND HAS MAINTAINED 2-4MCG/MIN TO KEEP MAP >65. PATIENT WAS STARTED ON KPHOS D/T LOW POTASSIUM AND PHOS. TF @ GOAL RATE 25ML/HR WITH MINIMAL TO NO RESIDUAL AND 30ML Q4H WATER FLUSH. RECTAL TUBE PATENT WITH LIGHT BROWN/LIQUID STOOL REPOSITIONED DURING BED BATH AND TEMP URBANO PATENT AND DRAINING CLEAR YELLOW URINE; NEW STAT LOCK PLACED ON RT THIGH. CENTRAL LINE DRESSING CHANGED THIS SHIFT; SITE CLEAR. WILL CONTINUE TO MONITOR UNTIL REPORT GIVEN TO ONCOMING NURSE.
--- NOTE | 2021-03-29 07:15 | NUR ---
Assumed care of pt at 0700. Report received from Petra BOX. Pt sedated with propofol at 20 mcg/kg/min, precedex 0.4 mcg/kg/hr, and fentanyl 50 mcg/hr. Receiving levophed at 6 mcg/min for blood pressure support. SR per monitor. BP stable. Pt has eyes opened, spontaneously. Upward gaze noted. Does not track. Responsive to painful stimulus. Cough and gag present. Ventilator settings ACVC 16/450/8/45%. SpO2 90% or greater. Tachypneic. OG tube with feeds and flushes per orders. 10 mL residual measured. Mendoza catheter in place, patent and draining clear yellow urine. Rectal tube with output of liquid brown stool.
--- NOTE | 2021-03-29 11:13 | NUR ---
Dr Freed in to see patient. Provider decreased PEEP to 5. RR 28. SpO2 90% or greater.
[2021-03-29 14:32] LABS: C DIFFICILE DNA NEGATIVE (Negative)
[2021-03-29 15:49] LABS: Creatinine, Blood 0.41 mg/dL (0.40-1.00); Vancomycin, Trough 11.8 ug/mL (5.0-10.0)
--- NOTE | 2021-03-29 16:53 | NUR ---
Performed sedation interruption, stopping propofol but maintaining precedex and fentanyl drips. Pt tolerated for about 45 minutes. Sedation restarted due to increasing tachycardia, tachypnea, and decreasing tolerance of ventilator. Pt was having runs of narrow QRS tachycardia, touching 150-160 BPM. At end of sedation interruption, increased coughing and fighting ventilator noted. No drop in SPO2 observed.
--- NOTE | 2021-03-29 17:03 | NUR ---
SUMMARY At this time, pt is receiving propofol at 20 mcg/kg/min, precedex at 0.4 mcg/kg/hr, fentanyl at 50 mcg/hr. Opens eyes spontanously, but does not track. Corneal reflex present. Weak, subtle movement noted to BUE and BLE. Reposive to noxious stimulus. Ventilator settings ACVC 16/450/5/45%. SpO2 9O% or greater. Scant amount of sputum suctioned from ETT. OG tube with new formula and feed rate per orders, as well as flushes per orders. 10 mL maximal residual measured. Mendoza catheter with excellent urine output. SR per monitor. BP stable. Levophed off. Will continue to closely monitor until care handoff and bedside report with oncoming RN.
--- NOTE | 2021-03-29 18:11 | NUR ---
Pt back on levophed. Pt became severely hypotensive, without any changes in sedation. Levophed restarted at 6 mcg/min. Dr Abdiaziz rankin.
--- NOTE | 2021-03-29 20:18 | NUR ---
ASSUMED CARE PATIENT LYING IN BED INTUBATED AND SEDATED ON PROPOFOL, PRECEDEX, AND FENTANYL LACTATION COORDINATOR. CENTRAL LINE APPEARS CLEAN, DRY, INTACT, AND INFUSING. PATIENT COUGHED OCCASIONALLY WITH THICK, VARGAS SECRETIONS FROM DEEP SUCTION. PIVOT 1.5 AMY WITH 30ML WATER FLUSH Q4H RUNNING WITH 80ML RESIDUAL. PATIENT BECAME RESTLESS WITH INCREASED PULSE, RESPIRATORY RATE AND BLOOD PRESSURE AFTER REPOSITIONING. VITALS RETURNED TO BASELINE AFTER LEVOPHED DECREASED AND ATIVAN 0.25MG IV ADMINISTERED. TEMP URBANO IN PLACE PATENT AND DRAINING CLEAR/YELLOW URINE. RECTAL TUBE PATENT AND DRAINING LIQUID/LIGHT BROWN STOOL. PATIENT ABLE TO NOD HEAD "YES/NO" TO SIMPLE QUESTIONS AND WEAK SEAT MAKER STRENGTH, BUT UNABLE TO OPEN EYES ON COMMAND OR TRACK SOUND.
[2021-03-30 04:26] LABS: BASOPHILS ABSOLUTE AUTO 0.07 K/mm3 (0.00-0.23); BASOPHILS PERCENT AUTO 1 % (0-2); EOSINOPHILS ABSOLUTE AUTO 0.05 K/mm3 (0.00-0.68); EOSINOPHILS PERCENT AUTO 0 % (0-6); Hematocrit 36.3 % (33.0-51.0); IMMATURE GRAN ABSOLUTE AUTO 0.59 K/mm3 (0.00-0.10); IMMATURE GRAN PERCENT AUTO 4 % (0-1); LYMPHOCYTES ABSOLUTE AUTO 0.89 K/mm3 (0.84-5.20); LYMPHOCYTES PERCENT AUTO 6 % (21-46); MONOCYTES ABSOLUTE AUTO 0.45 K/mm3 (0.16-1.47); MONOCYTES PERCENT AUTO 3 % (4-13); Mean Corpuscular HGB 30.1 pg (26.0-34.0); Mean Corpuscular HGB Conc 33.1 g/dL (31.5-36.5); Mean Corpuscular Volume 91 fL (80-100); Mean Platelet Volume 9.1 fL (9.1-12.4); NEUTROPHILS ABSOLUTE AUTO 13.27 K/mm3 (1.96-9.15); NEUTROPHILS PERCENT AUTO 87 % (41-73); Platelet Count 282 K/mm3 (150-400); RDW Coefficient Variation 13.3 % (11.7-14.2); RDW Standard Deviation 44.7 fL (35.1-46.3); Red Blood Cell Count 3.99 M/mm3 (3.80-5.20); White Blood Cell Count 15.32 K/mm3 (4.00-11.30)
[2021-03-30 04:43] LABS: Anion Gap 5 mmol/L (6-16); Blood Urea Nitrogen 23 mg/dL (8-24); Bun/Creatinine Ratio 52.6 (12.0-20.0); CO2, Blood 24 mmol/L (21-32); Calcium, Blood 7.8 mg/dL (8.5-10.1); Chloride, Blood 113 mmol/L (98-108); Creatinine, Blood 0.44 mg/dL (0.40-1.00); Glomerular Filtration Rate >60 (60-); Glucose, Blood 154 mg/dL (70-99); Magnesium, Blood 2.4 mg/dL (1.6-2.4); Phosphorus, Blood 2.4 mg/dL (2.5-4.9); Potassium, Blood 3.8 mmol/L (3.5-5.5); Sodium, Blood 142 mmol/L (136-145)
--- NOTE | 2021-03-30 06:14 | NUR ---
SHIFT SUMMARY PATIENT REMAINED INTUBATED AND SEDATED ON PROPOFOL, PRECEDEX, AND FENTANYL HOUSE BUILDER. VENT REMAINS AT AC 16/450/5/45%, TOLERATING WELL WITH THICK/VARGAS SECRETIONS VIA ETT. PATIENT BECAME AGITATED EVIDENCED BY INCREASED HEART RATE AND RESPIRATORY RATE WITH REPOSITIONING; MEDICATED WITH 0.25MG ATIVAN TWICE. LEVOPHED TITRATED FROM 6MCG/MIN TO 3MCG/MIN TO KEEP MAP >65. TITRATED PRECEDEX FROM 0.4MCG/KG/HR TO 0.2MCG/KG/HR D/T BRADYCARDIA OF 59. TF RESIDUALS HIGH; 180 AT HIGHEST. PATIENT WAS ABLE TO NOD "YES/NO" THROUGHOUT SHIFT; NO BUILDING ANALYST/SUPERVISOR STRENGTHS OR TRACKING. LISA SOFT WRIST RESTRAINTS STILL IN PLACE. WILL CONTINUE TO MONITOR UNTIL REPORT GIVEN TO ONCOMING DAYSHIFT RN.
--- NOTE | 2021-03-30 09:02 | NUR ---
Assumed care of pt at 0700. Report received from Petra BOX. Pt sedated with propofol at 20 mcg/kg/min, precedex at 0.2 mcg/kg/hr, fentanyl 50 mcg/hr. Pt opens eyes spontaneously. Responsive to noxious stimulus. Pt on 3 mcg/min levophed for blood pressure support. BP stable. ST per monitor. OG tube with feed and flushes per orders. 150 mL residual measured. Rectal tube in place, patent with liquid brown output. Mendoza catheter patent and draining yellow urine.
--- NOTE | 2021-03-30 14:45 | NUR ---
Propofol off. Precedex and fentanyl continued at previous rates. RR mid 20s, which is unchanged from previous. No coughing or fighting of ventilator noted.
--- NOTE | 2021-03-30 18:20 | NUR ---
SUMMARY At this time, propofol remains off. Precedex at 0.4 mcg/kg/hr. Fentanyl at 50 mcg/hr. Pt is responsive to verbal stimulus, with increased movement of eyes noted when spoken to, but pt still does not track and does not follow commands. Plan to keep sedation off and manage anxiety pharmacologically per Dr Emanuel. Ventilator settings ACVC 16/450/5/45%. SpO2 90% or greater. Small amount of frothy white sputum suctioned from ETT. Rectal tube remains in place. Mendoza catheter had excellent output of urine. ST per montior. BP high-normal. Per Dr Emanuel, continue to montior BP and HR. No pharmacologic intervention at this time. Will continue to closely montior until care handoff and bedside report with oncoming RN.
--- NOTE | 2021-03-30 21:05 | NUR ---
SHIFT ASSESSMENT ASSUMED CARE OF PT @ 1900. REPORT RECEIVED FROM ISAURO RAMSAY. PT INTUBATED AND SEDATED. PROPOFOL HAS BEEN ON SB SINCE THIS AFTERNOON. PRECEDEX GTT @ 0.4MCG/KG/HR, FENTANYL RESIDENT CARE MANAGER @ 50MCG/HR, AND PRN ATIVAN FOR SEDATION ADJUNCT. SBP > 110 BUT PT FIGHTING VENTILATOR, OPENINING EYES BUT NOT RESPONDING PURPOSEFULLY TO COMMANDS. MEDICATED c PRN ATIVAN, SHORTLY AFTER BP DECREASED c MAP <60, LEVOPHED GTT INITIATED @ 3MCG/MIN c MAP >65 AT THIS TIME. TF INFUSING @ GOAL RATE. RECTAL TUBE DRAINING SMALL AMNT OF LOOSE, BROWN STOOL. TEMP URBANO CATH DRAINING CLEAR, LIGHT YELLOW URINE.
[2021-03-31 04:17] LABS: BASOPHILS ABSOLUTE AUTO 0.08 K/mm3 (0.00-0.23); BASOPHILS PERCENT AUTO 0 % (0-2); EOSINOPHILS ABSOLUTE AUTO 0.13 K/mm3 (0.00-0.68); EOSINOPHILS PERCENT AUTO 1 % (0-6); Hematocrit 37.5 % (33.0-51.0); Hemoglobin 12.2 g/dL (11.5-16.0); IMMATURE GRAN ABSOLUTE AUTO 0.48 K/mm3 (0.00-0.10); IMMATURE GRAN PERCENT AUTO 3 % (0-1); LYMPHOCYTES ABSOLUTE AUTO 1.21 K/mm3 (0.84-5.20); LYMPHOCYTES PERCENT AUTO 7 % (21-46); MONOCYTES ABSOLUTE AUTO 0.66 K/mm3 (0.16-1.47); MONOCYTES PERCENT AUTO 4 % (4-13); Mean Corpuscular HGB Conc 32.5 g/dL (31.5-36.5); Mean Corpuscular Volume 92 fL (80-100); Mean Platelet Volume 9.2 fL (9.1-12.4); NEUTROPHILS ABSOLUTE AUTO 15.65 K/mm3 (1.96-9.15); NEUTROPHILS PERCENT AUTO 86 % (41-73); Platelet Count 282 K/mm3 (150-400); RDW Coefficient Variation 13.4 % (11.7-14.2); RDW Standard Deviation 45.6 fL (35.1-46.3); Red Blood Cell Count 4.06 M/mm3 (3.80-5.20); White Blood Cell Count 18.21 K/mm3 (4.00-11.30)
[2021-03-31 04:32] LABS: Anion Gap 4 mmol/L (6-16); Blood Urea Nitrogen 23 mg/dL (8-24); Bun/Creatinine Ratio 51.1 (12.0-20.0); CO2, Blood 25 mmol/L (21-32); Calcium, Blood 8.2 mg/dL (8.5-10.1); Chloride, Blood 113 mmol/L (98-108); Creatinine, Blood 0.45 mg/dL (0.40-1.00); Glomerular Filtration Rate >60 (60-); Glucose, Blood 205 mg/dL (70-99); Phosphorus, Blood 2.3 mg/dL (2.5-4.9); Potassium, Blood 4.3 mmol/L (3.5-5.5); Sodium, Blood 142 mmol/L (136-145)
--- NOTE | 2021-03-31 06:49 | NUR ---
SHIFT SUMMARY PT REMAINS INTUBATED AND SEDATED. NO CHANGES TO VENT SETTINGS. PROPOFOL REMAINS ON SB. PRECEDEX GTT TITRATED T/O THE NIGHT, CONTINUES TO FIGHT THE VENTILATOR. PT MEDICATED c PRN ATIVAN, RESPONDS WELL TO ATIVAN, TOLERATES VENTILATOR BUT BP QUICKLY DROPS HENCE LEVOPHED GTT CONTINUES @ 3MCG/MIN c MAP >60. FENTANYL HELPER METAL HANGING CONTINUES @ 50MCG/HR. NO CHANGES IN MENTAL STATUS, NOT FOLLOWING COMMANDS, EYES OPEN BUT WILL NOT TRACK NURSE.
--- NOTE | 2021-03-31 07:55 | NUR ---
INITIAL ASSESSMENT PATIENT INTUBATED. PATIENT UNRESPONSIVE. PROPOFOL OFF. PRECEDEX AT 0.4 MCG/ KG/ HOUR. NO REACTION TO NOXIOUS STIMULI. NO EYE MOVEMENT NOTED. NO COUGH, GAG OR SWALLOW REFLEXES NOTED. PUPILS REACTIVE TO LIGHT. NO SIGNS OF PAIN NOTED. PATIENT HAS TEMP OF 99.6 DEGREES FAHRENHEIT. SHEET REMOVED AND FAN PLACED ON PATIENT. PATIENT ON VENT SETTINGS OF AC 16, TV 450, PEEP 5 AND 40% FIO2. LUNGS CLEAR IN UPPER LOBES AND DIMINISHED IN LOWER LOBES. NO SPUTUM NOTED WITH ETT SUCTIONING. PATIENT IN SB TO SR, HR 50S TO 70S. SBP 80S TO 90S WITH LEVOPHED DRIP AT 3 MCG/ MINUTE. TRACE EDEMA NOTED TO BLES. ABDOMEN MILDLY DISTENDED, SOFT, WITH NORMOACTIVE BS NOTED. PIVOT 1.5 TF INFUSING AT GOAL RATE OF 40 MLS/ HOUR WITH 30 ML WATER Q4H. RESIDUAL OF 150 MLS OBTAINED AND REINSTILLED THIS AM. RECTAL TUBE IN PLACE DRAINING SCANT AMOUNT OF BROWN, LIQUID STOOL. TEMP PROBE URBANO DRAINING DARK YELLOW COLORED URINE. SKIN PALE AND FRAGILE. SCATTERED BRUISES NOTED. MEPILEX TO REDDENED COCCYX. NS TKO. BED LOW, CALL LIGHT IN REACH. WILL CONTINUE TO MONITOR PATIENT FREQUENTLY THROUGHOUT SHIFT.
--- NOTE | 2021-03-31 10:55 | NUR ---
DR. MELVIN UPDATED ON PATIENT STATUS. INFORMED THAT PATIENT REMAINING UNRESPONSIVE DESPITE BOTH PRECEDEX AND PROPOFOL BEING OFF. INFORMED THAT PATIENT REMAINS ON FENTANYL DRIP AND SCHEDULED ZYPREXA. INFORMED THAT WBCS INCREASING. INFORMED THAT DAY 7 FOR RIGHT IJ CENTRAL LINE. ORDERS RECEIVED.
--- NOTE | 2021-03-31 12:30 | NUR ---
PATIENT HAS TEMP OF 99.6 DEGREES FAHRENHEIT. PATIENT NOW RESPONSIVE. PRECEDEX ON SB, PROPOFOL REMAINS OFF. PATIENT CONTINUES TO HAVE MOUTH WIDE OPEN. PATIENT REMAINS NOT TRACKING AND EYES RETAPED BECAUSE PATIENT OPENED AND NOW WILL NOT CLOSE ON OWN AGAIN. PATIENT ABLE TO WIGGLE R TOES WHEN ASKED. PATIENT WIGGLED L TOES AND R FINGERS WHEN NOXIOUS STIMULI APPLIED. NO MOVEMENT NOTED TO L HAND. PATIENT APPEARS AGITATED AT TIMES BECOMES TACHYPNEIC. PATIENT REMAINS ON SAME VENT SETTINGS. SCANT AMOUNT OF THICK, YELLOW SPUTUM BEING SUCTIONED FROM ETT. HR 90S TO LOW 100S. SBP 140S TO 160S. LEVOPHED ON SB. NO OTHER ACUTE CHANGES TO NOTE ON AT THIS TIME. WILL CONTINUE TO MONITOR.
--- NOTE | 2021-03-31 16:30 | NUR ---
TEMP OF 99.8 DEGREES FAHRENHEIT. PATIENT BACK TO BEING UNRESPONSIVE. PATIENT HAS RIGHT, UPWARD GAZE. EYES REMAIN TAPED 1/3 OPEN AND NOT CLOSING. MOUTH REMAINS WIDE OPEN. DR. MELVIN AWARE. PATIENT REMAINS ON SAME VENT SETTINGS. PATIENT IN MULTI-FOCAL ATRIAL TACH, HR LOW 100S. SBP 140S TO 170S. NO OTHER ACUTE CHANGES TO NOTE ON AT THIS TIME. WILL CONTINUE TO MONITOR.
--- NOTE | 2021-03-31 19:09 | NUR ---
SHIFT SUMMARY PATIENT REMAINED INTUBATED. PATIENT MOSTLY REMAINED UNRESPONSIVE. PATIENT ABLE TO WIGGLE R TOES AT NOON ASSESSMENT BUT NEXT TIME NURSE IN ROOM PATIENT WAS UNRESPONSIVE AGAIN. PRECEDEX AND PROP REMAINED OFF. FENTANYL DRIP REMAINED ON. PATIENT DID SHOW AGITATION AT TIMES WITH INCREASED RR, HR AND BP. PATIENT EYES REMAINED FIXED. EYES FORWARD FIXED MOST OF SHIFT AND LATER IN SHIFT THEY TURNED TO RIGHT- UPWARD GAZE. PATIENT GIVEN PRN ATIVAN X 2 TO HELP WITH AGITATION SIGNS. PATIENT HAD TMAX OF 99.8 DEGREES FAHRENHEIT. PATIENT REMAINED ON VENT SETTINGS OF AC 16, TV 450, PEEP 5 AND 40% FIO2. SCANT AMOUNT OF THICK, YELLOW SPUTUM SUCTIONED FROM ETT. PATIENT SINUS RHYTHM THIS AM AND LATER IN SHIFT CONVERTED TO MULTI-FOCAL ATRIAL TACH. DR. MELVIN AWARE OF THIS. HR RANGED FROM 50S (WHEN ON PRECEDEX) UP TO 130S WITH AGITATION. SBP 80S TO 170S. LEVOPHED TURNED OFF THIS SHIFT. RECTAL TUBE DRAINED 300 MLS OF BROWN, LIQUID STOOL. TF REMAINED AT GOAL RATE. RUBANO DRAINED 3200 MLS. NO CHANGE TO SKIN. PATIENT REPOSITIONED THROUGHOUT SHIFT. AZITHROMYCIN AND ROCEPHIN STARTED THIS SHIFT. PATIENT HAD 20 MM SODIUM PHOS REPLACEMENT FOR PHOS OF 2.3 THIS AM. PATIENT APPEARS COMFORTABLE AT THIS TIME. BED LOW, CALL LIGHT IN REACH. REPORT GIVEN TO ASSUMING PERFECT BINDER OPERATOR NURSE.
--- NOTE | 2021-03-31 23:25 | NUR ---
SHIFT ASSESSMENT ASSUMED CARE OF PT @ 1900. REPORT RECEIVED FROM ISAURO BASSETT. PT INTUBATED, NOT RESPONDING. EYES NOT TRACKING NURSE, PUPILS EQUAL AND SLUGGISH. VENT [id number]-49/450/5/40% c O2 SATS >90%. PROPOFOL AND PRECEDEX INITIALLY ON SB. FENTANYL GTT @ 50MCG/HR. PT IN MULTIFOCAL ATRIAL TACH. APPEARS UNCOMFORTABLE, MEDICATED c 1MG PRN ATIVAN, PT CALMED DOWN FOR ABOUT AN HOUR THEN BECAME TACHY AND HYPERTENSIVE. PRECEDEX GTT INITIATED @ 0.2MCG/KG/HR, THEN TITRATED TO 0.4MCG/KG/HR. SHORTLY AFTER PT BECAME HYPOTENSIVE, PRECEDEX BACK ON SB. SPOKE WITH DR MELVIN, ORDERS FOR ATIVAN Q2 INSTEAD OF Q3. TF c PIVOT 1.5 @ GOAL, RECTAL TUBE DRAINING LOOSE BROWN STOOL. TEMP URBANO CATH PATENT, DRAINING YELLOW URINE. MEPILEX IN PLACE ON COCCYX, C/D/I.
[2021-04-01 04:22] LABS: BASOPHILS ABSOLUTE AUTO 0.06 K/mm3 (0.00-0.23); BASOPHILS PERCENT AUTO 0 % (0-2); EOSINOPHILS ABSOLUTE AUTO 0.23 K/mm3 (0.00-0.68); EOSINOPHILS PERCENT AUTO 1 % (0-6); Hemoglobin 13.6 g/dL (11.5-16.0); IMMATURE GRAN ABSOLUTE AUTO 0.28 K/mm3 (0.00-0.10); IMMATURE GRAN PERCENT AUTO 2 % (0-1); LYMPHOCYTES ABSOLUTE AUTO 1.44 K/mm3 (0.84-5.20); LYMPHOCYTES PERCENT AUTO 8 % (21-46); MONOCYTES ABSOLUTE AUTO 0.87 K/mm3 (0.16-1.47); MONOCYTES PERCENT AUTO 5 % (4-13); Mean Corpuscular HGB Conc 32.4 g/dL (31.5-36.5); Mean Corpuscular Volume 93 fL (80-100); Mean Platelet Volume 9.3 fL (9.1-12.4); NEUTROPHILS ABSOLUTE AUTO 15.27 K/mm3 (1.96-9.15); NEUTROPHILS PERCENT AUTO 84 % (41-73); Platelet Count 295 K/mm3 (150-400); RDW Coefficient Variation 13.5 % (11.7-14.2); RDW Standard Deviation 45.3 fL (35.1-46.3); Red Blood Cell Count 4.53 M/mm3 (3.80-5.20); White Blood Cell Count 18.15 K/mm3 (4.00-11.30)
[2021-04-01 04:38] LABS: Albumin, Blood 2.4 g/dL (3.4-5.0); Anion Gap 5 mmol/L (6-16); Blood Urea Nitrogen 26 mg/dL (8-24); Bun/Creatinine Ratio 64.5 (12.0-20.0); CO2, Blood 24 mmol/L (21-32); Chloride, Blood 114 mmol/L (98-108); Glomerular Filtration Rate >60 (60-); Glucose, Blood 169 mg/dL (70-99); Phosphorus, Blood 2.8 mg/dL (2.5-4.9); Sodium, Blood 143 mmol/L (136-145)
--- NOTE | 2021-04-01 06:39 | NUR ---
SHIFT SUMMARY NO SIGNIFICANT CHANGES IN PT CONDITION. REMAINS INTUBATED, PROPOFOL REMAINS OFF. PT IS NOT FOLLOWING ANY COMMANDS. NO CHANGES TO VENT SETTINGS. FENTANYL FRUIT STUFFER @ 50MCG/HR FOR SEDATION. PRECEDEX GTT REMAINED OFF T/O THE NIGHT. PT WOULD HAVE MOMENTS OF ADEQUATE SEDATION FOLLOWED BY TACHYCARDIA AND HTN. GIVEN PRN ATIVAN AND ONE DOSE OF 50MCG FENTANYL PUSH FOR SEDATION ADJUNCT. TEMP URBANO DRAINING YELLOW URINE. 100ML LOOSE STOOL VIA RECTAL TUBE. UPDATED SALOMÓN BARNEY) OF PT CONDITION. HE WILL CALL THIS AFTERNOON FOR FURTHER UPDATE.
--- NOTE | 2021-04-01 08:40 | NUR ---
INITIAL ASSESSMENT PATIENT INTUBATED. PRECEDEX AND PROPOFOL OFF. FENTANYL DRIP INFUSING AT 50 MCG/ MINUTE. PATIENT OPENED EYES TO COMMAND. PATIENT DOES NOT TRACK; EYES FIXED STRAIGHT FORWARD. PATIENT WIGGLES TOES WHEN ASKED. NO MOVEMENT NOTED TO ARMS OR HANDS NOTED, EVEN WHEN NOXIOUS STIMULI APPLIED. PATIENT DOES NOT TURN HEAD. MOUTH WIDE OPEN. + GAG AND COUGH REFLEXES NOTED. PATIENT HAS TEMP OF 99.6 DEGREES FAHRENHEIT. PATIENT SATTING 90% AND GREATER ON AC 16, TV 450, PEEP 5 AND 40% FIO2. LUNGS CLEAR THROUGHOUT. SMALL AMOUNT OF THICK, PALE YELLOW SPUTUM SUCTIONED FROM ETT. RR IN THE 20S. PATIENT APPEARS TO BE IN MULTIFOCAL ATRIAL TACH, PER DR. MELVIN. HR LOW 100S TO 170S. SBP 100 TO 170S. HYPOACTIVE BS NOTED. TF INFUSING AT GOAL RATE. RESIDUAL OF 10 MLS OBTAINED AND REINSTILLED THIS AM. RECTAL TUBE IN PLACE DRAINING BROWN, LIQUID STOOL. URBANO DRAINING YELLOW COLORED URINE. SCATTERED BRUISES NOTED. MEPILEX TO REDDENED COCCYX. SKIN PALE AND FRAGILE. BED LOW, CALL LIGHT IN REACH. WILL CONTINUE TO MONITOR PATIENT FREQUENTLY THROUGHOUT SHIFT.
--- NOTE | 2021-04-01 12:20 | NUR ---
SHIFT SUMMARY PATIENT REMAINED ABLE TO WIGGLE TOES TO VERBAL COMMAND. PATIENT DID NOT MOVE HEAD, EYES, ARMS OR HANDS. EYES REMAINED FIX. PATIENT WOULD CONTINUE TO LEAVE EYES OPENED SO WERE SHUT WITH PAPER TAPE TO PROTECT. MOUTH REMAINED WIDE OPEN. PATIENT HAD TMAX OF 99.8 DEGREES FAHRENHEIT. PATIENT GIVEN PRN BUSPAR TO HELP WITH SIGNS OF AGITATION. PATIENT REMAINED ON FENTANYL DRIP. PATIENT REMAINED ON AC 16, TV 450, PEEP 5 AND 40%. PATIENT HAD SHORT WEAN BUT RRS INCREASED UP TO 50S. PATIENT CONTINUES TO HAVE SMALL AMOUNTS OF THICK, PALE YELLOW SPUTUM SUCTIONED FROM ETT. PATIENT REMAINED IN IRREGULAR, TACHY RHYTHM. HR LOW 100S AND UP TO 170S. SBP 100 TO 160S. SCHEDULED CARDIZEM STARTED THIS SHIFT. TF REMAINED AT GOAL RATE. MINIMAL RESIDUAL. URBANO REMAINED DRAINING YELLOW COLORED URINE. NO CHANGES TO SKIN. PATIENT REPOSITIONED Q2H. BED LOW, CALL LIGHT IN REACH. REPORT GIVEN TO ASSUMING NURSE.
--- NOTE | 2021-04-01 17:41 | NUR ---
SHIFT SUMMARY ASSUMED CARE OF PT @ 1200 SHIFT EVENTS PT HAD COUGHING FIT EARLY ON IN SHIFT, 50mcg FENTANYL PUSH AND 1mg ATIVAN ADMINISTERED WITH GOOD EFFECT. PT SUBSEQUENTLY HYPOTENSIVE, LEVOPHED RESTARTED AND 500ml NS BOLUS x2 ADMINISTERED. NEW ORDER FOR SCHEDULED PT ATIVAN. PT INITIALLY RESPONSIVE ONLY TO PAIN, PM ASSESSMENT PT WAS WIGGLING TOES ON BOTH FEET UPON COMMAND. TAPE WAS REMOVED FROM EYES, PT OPENS/CLOSES EYES UPON COMMAND AND SPONTANEOUSLY. GAG AND COUGH PRESENT. PT ON VENTILATOR AC 16/450 PEEP 5 FIO2 35%, LS CLEAR, SCANT AMOUNT OF SPUTUM FROM ETT. PT CONTINUES TO HAVE MULITFOCAL TACHYCARDIA, RATE 110-120'S. LEVO CURRENTLY ON SB WITH SBP 140'S. OG IN PLACE WITH PIVOT 1.5 AT GOAL RATE OF 40ml/hr, LOW RESIDUALS, RECTAL TUBE IN PLACE WITH LITTLE OUTPUT, SKIN AROUND RECTAL TUBE INTACT. URBANO REMAINS IN PLACE WITH GOOD URINE OUTPUT. Q2H TURNS AND ROM PROVIDED FOR PT, MINIMAL MOVEMENT NOTED TO EXTREMETIES. PLACE
--- NOTE | 2021-04-01 20:05 | NUR ---
SHIFT ASSESSMENT ASSUMED CARE OF PT @ 1900. REPORT RECEIVED FROM ISAURO DE LOS SANTOS. PT INTUBATED, FENTANYL @ 50MCG/HR AND PRN ATIVAN FOR SEDATION. VENT [id number]/450/30%/ PEEP-5 c O2 SATS >90%. SMALL AMNT OF WHITE SECRETIONS SUCTIONED FROM ET TUBE. PTS EYES OPEN BUT NOT TRACKING NURSE. NOT FOLLOWING COMMANDS AT THIS TIME. + GAG AND COUGH, TURNS HEAD SLIGHTLY WITH ORAL CARE. IN THUY SOFT WRIST RESTRAINTS FOR PROTECTION OF LINES, ET TUBE. TF INFUSING @ GOAL RATE. RECTAL TUBE WITH MINIMAL LOOSE STOOL. TEMP FLEY CATH DRAINING YELLOW URINE, PT AFEBRILE. WILL CONTINUE TO MONITOR CLOSELY.
[2021-04-02 05:08] LABS: BASOPHILS ABSOLUTE AUTO 0.04 K/mm3 (0.00-0.23); BASOPHILS PERCENT AUTO 0 % (0-2); EOSINOPHILS ABSOLUTE AUTO 0.07 K/mm3 (0.00-0.68); EOSINOPHILS PERCENT AUTO 0 % (0-6); Hematocrit 39.5 % (33.0-51.0); IMMATURE GRAN ABSOLUTE AUTO 0.23 K/mm3 (0.00-0.10); IMMATURE GRAN PERCENT AUTO 1 % (0-1); LYMPHOCYTES ABSOLUTE AUTO 1.52 K/mm3 (0.84-5.20); LYMPHOCYTES PERCENT AUTO 8 % (21-46); MONOCYTES ABSOLUTE AUTO 0.95 K/mm3 (0.16-1.47); MONOCYTES PERCENT AUTO 5 % (4-13); Mean Corpuscular HGB 30.3 pg (26.0-34.0); Mean Corpuscular HGB Conc 32.9 g/dL (31.5-36.5); Mean Corpuscular Volume 92 fL (80-100); Mean Platelet Volume 9.2 fL (9.1-12.4); NEUTROPHILS PERCENT AUTO 86 % (41-73); Platelet Count 294 K/mm3 (150-400); RDW Coefficient Variation 13.6 % (11.7-14.2); Red Blood Cell Count 4.29 M/mm3 (3.80-5.20); White Blood Cell Count 20.31 K/mm3 (4.00-11.30)
[2021-04-02 05:37] LABS: Albumin, Blood 2.3 g/dL (3.4-5.0); Anion Gap 6 mmol/L (6-16); Blood Urea Nitrogen 27 mg/dL (8-24); Bun/Creatinine Ratio 65.7 (12.0-20.0); CO2, Blood 23 mmol/L (21-32); Calcium, Blood 8.7 mg/dL (8.5-10.1); Chloride, Blood 113 mmol/L (98-108); Creatinine, Blood 0.41 mg/dL (0.40-1.00); Glomerular Filtration Rate >60 (60-); Glucose, Blood 184 mg/dL (70-99); Phosphorus, Blood 2.5 mg/dL (2.5-4.9); Potassium, Blood 4.1 mmol/L (3.5-5.5); Sodium, Blood 142 mmol/L (136-145)
--- NOTE | 2021-04-02 06:17 | NUR ---
SHIFT SUMMARY PT REMAINS INTUBATED AND SEDATED c FENTANYL AND PRN ATIVAN. NO CHANGES TO VENT SETTINGS. DURING REASSESSMENT AT MIDNIGHT PT WAS ABLE TO WEAKLY SQUEEZE RIGHT HAND AND WIGGLE BOTH R/L TOES, NO PURPOSEFUL MOVEMENT OF THE LEFT HAND. EYES OPEN SPONTANEOUSLY BUT NOT TRACKING NURSE, BLANK FORWARD GAZE. LEVOPHED INITIATED FOR APPROXIMATELY TWO HOURS DURING THE NIGHT, SBP CURRENTLY 150'S c LEVOPHED ON SB. PT GOING INTO MULTIFOCAL TACHY AND BACK INTO NSR IN THE 80'S. TEMP URBANO CATH DRAINING CLEAR URINE, AFEBRILE. TF CONTINUES AT GOAL. SCANT OUTPUT FROM RECTAL TUBE, SKIN AROUND C/D/I.
--- NOTE | 2021-04-02 10:55 | NUR ---
PT NOT RESPONDING TO NOXIOUS STIMULI BUT IS OBSERVERD SPONT. MOVING L ARM, AND TOES OF BOTH FEET. PT VENT SETTING NOTED AND STABLE. PT IS RESTRAINED. MINIMAL ET SX WHITE. PT OG TO PIVOT AT 40 ML GOAL AND 20 RESIDUAL NOTED. FENT COLLECTIONS AGENT NOTED. RIJ HAS ONE LINE THAT IS CLOTTED OFF AND TAPED OVER AT THIS AM ASSESSMENT. URBANO PATENT. RECTAL TUBE NOT CURRENTLY DRAINING AND NOTED TO BE SIMULAR ON NOC SHIFT. AC 16 450 30% PEEP 5 AND MINIMAL WHITE SECREATIONS NOTED. PT BP LOW AND LEVOPHED GTT STARTED BUT LATER D/C DUE TO ELEVATED BP, WILL FOLLOW. PT RHYTHM NOTED TO BE SINUS BUT MULTIPLE MORPHOLOGIES X3 NOTED.
--- NOTE | 2021-04-02 13:49 | NUR ---
Family contact with son, Evelyn - [phone]. Son reached by phone. I updated him on current status and concerns for cont altered LOC and cognition. Evelyn states he will not be available to visit his mom until Friday. I asked if there were other family members available to assist him with decision making in regard to pt's current code status. Evelyn will contact his aunts, although not blood related, he states he and his mom consider them family. We reviewed [place] statutes and our policy in regard to hierarchy of decision makers and that it is his choice if he wants to share or delegate decision making as his mom's only designated decision maker. He will ask his aunts to call me, number provided, to arrange a conference either by phone or in person to discuss code status and advanced care planning.
--- NOTE | 2021-04-02 16:35 | NUR ---
1600 BP NOTED TO BE LOW AFTER PRECEEX GTT HAD BEEN STARTED. LEVOPHED GTT TITRATED. SEE VS. PRECEDEX GTT LOWERED. SEE FLOW SHEET.
--- NOTE | 2021-04-02 19:10 | NUR ---
PT BP AND HR DROPPED PROBABLY DUE TO PERCEDEX GTT. SEE VS FLOW SHEET. PT IS CURRENTLY IN MAT WITH HR 100-105. PT URBANO CONT. TO LEAK AND PT CLEANED UP W/O NOTED SKIN BREAKDOWN. I/O NOTED. PT IS OFF LEVOPHED AND PERCEDEX GTTS NOTED. PT CONT TO TOLERATE SPONT 8/5 AT 30% FOR NOW.
[2021-04-03 03:53] LABS: PCO2 Arterial 30.1 mmHg (35-45); PO2 Arterial 66.9 mmHg (80-100); pH Blood Arterial 7.48 (7.35-7.45)
[2021-04-03 04:09] LABS: BASOPHILS ABSOLUTE AUTO 0.04 K/mm3 (0.00-0.23); BASOPHILS PERCENT AUTO 0 % (0-2); EOSINOPHILS PERCENT AUTO 0 % (0-6); Hematocrit 41.3 % (33.0-51.0); Hemoglobin 13.5 g/dL (11.5-16.0); IMMATURE GRAN ABSOLUTE AUTO 0.24 K/mm3 (0.00-0.10); IMMATURE GRAN PERCENT AUTO 1 % (0-1); LYMPHOCYTES PERCENT AUTO 5 % (21-46); MONOCYTES PERCENT AUTO 4 % (4-13); Mean Corpuscular HGB 29.9 pg (26.0-34.0); Mean Corpuscular HGB Conc 32.7 g/dL (31.5-36.5); Mean Corpuscular Volume 91 fL (80-100); Mean Platelet Volume 9.5 fL (9.1-12.4); NEUTROPHILS PERCENT AUTO 89 % (41-73); Platelet Count 324 K/mm3 (150-400); RDW Coefficient Variation 13.4 % (11.7-14.2); RDW Standard Deviation 45.1 fL (35.1-46.3); Red Blood Cell Count 4.52 M/mm3 (3.80-5.20); White Blood Cell Count 21.48 K/mm3 (4.00-11.30)
[2021-04-03 04:24] LABS: Anion Gap 5 mmol/L (6-16); Blood Urea Nitrogen 28 mg/dL (8-24); CO2, Blood 24 mmol/L (21-32); Chloride, Blood 113 mmol/L (98-108); Creatinine, Blood 0.41 mg/dL (0.40-1.00); Glomerular Filtration Rate >60 (60-); Glucose, Blood 218 mg/dL (70-99); Magnesium, Blood 2.5 mg/dL (1.6-2.4); Potassium, Blood 4.2 mmol/L (3.5-5.5); Sodium, Blood 142 mmol/L (136-145)
--- NOTE | 2021-04-03 06:25 | NUR ---
END OF SHIFT SUMMARY: PATIENT STARTED BREATHING IN THE 50-60S AND WAS PUT BACK ON AC SETTINGS AROUND 2200. BREATHES OVER VENT OFTEN BUT NO EXTRA SEDATION HAS BEEN GIVEN. CONTINUES TO BE ON FENTANYL FRICKERTRON CHECKER ONLY AT THIS TIME. FOLLOWS SOME COMMANDS BUT OVERALLY PRETTY FLACCID AND WEAK. REPOSIONED Q2 OVERNIGHT. NO LABILE BP ON MY SHIFT. PATIENT REMAINS RESTRAINED AT THIS TIME
--- NOTE | 2021-04-03 08:40 | NUR ---
ASSUMED CARE REPORT FROM EDIN BOX AT 0700. PT INTUBATED AND SEDATED. VENT SETTINGS AT THIS TIME, AC 18/450/5/30%. PT PLACED ON PS 5/30% FOR SHORT PERIOD OF TIME, RR INCREASED TO 40'S. CHANGED BACK TO AC BY RT. FENTANYL GTT INFUSING. PT ABLE TO WIGGLE TOES BILATERALLY ON COMMAND. ALSO ABLE TO SLOW RESP WHEN COACHED. NO MOVEMENT TO UPPER EXTREMTIES NOTED. LUNGS CLEAR. SCANT SECRETIONS THROUGH ETT. TUBE FEEDS AT GOAL, 45 ML/HR c 30 ML FLUSH q4 HR. NO RESIDUALS THIS AM. URBANO PATENT, DRAINING CLEAR YELLOW URINE TO GRAVITY. RECTAL TUBE IN PLACE, DRAINING TO GRAVITY. MULTIFOCAL TACH, RATE 100-120'S. BP STABLE. WILL CONTINUE TO MONITOR.
--- NOTE | 2021-04-03 15:23 | NUR ---
Son, Evelyn, returned call. Update provided. Informed that planned to call with an update today also. After discussing with other family members, Evelyn states he wishes for pt to remain a full code at this time and states that if [facility] interventions indicated such as feeding tube and trach that he would want that also. He was informed of poor prognosis if CPR required and he stated he wanted us to "try anyway". [facility] will remain available to update family as needed. RN notified of my conversation with son and request that pt remain a full code.
--- NOTE | 2021-04-03 17:42 | NUR ---
SHIFT SUMMARY PT REMAINS INTUBATED. ON SPONT MOST OF SHIFT. CHANGED TO AC 18/450/5/30%. OCCASIONAL HIGH RESP RATE. ABLE TO WATER INSPECTOR TO TAKE SLOW BREATHS. NO CHANGE IN NEURO STATUS. UP TO CHAIR MOST OF SHIFT. TOLERATED WELL. LUNGS CLEAR. SCANT SECRETIONS. TUBE FEEDS CONTINUE AT GOAL. MINIMAL RESIDUALS. URBANO PATENT, DRAINING CLEAR YELLOW URINE TO GRAVITY. RECTAL TUBE IN PLACE, DRAINING LIQUID BROWN STOOL. LEAKED WHILE IN CHAIR. REPOSITIONED. BP STABLE, HR 100-120'S. NO ACUTE CHANGES THIS SHIFT. WILL CONTINUE TO MONITOR UNTIL REPORT TO ONCOMING NURSE.
--- NOTE | 2021-04-03 18:21 | NUR ---
SHIFT SUMMARY PT REMAINS INTUBATED AND SEDATED. PROPOFOL, PRECEDEX AND FENTANYL GTT CONTINUE. PT PRONED AT 1030 s DIFFICULTY, O2 SATS INCREASED TO HIGH 90'S. ABLE TO TITRATE FIO2 DOWN THIS SHIFT. CURRENT VENT SETTINGS AC 20/400/10/50%. LUNGS COARSE, DIM IN BASES. SCANT THICK SECRETIONS FROM ETT. TUBE FEEDS DECREASED TO 10 ML/HR D/T PROPOFOL RATE. HIGH RESIDUALS THIS SHIFT. URBANO PATENT, CONTINUES TO DRAIN RED/BROWN URINE. DIURESED, 4200ML OUT THIS SHIFT. BP STABLE, NSR, RATE 70'S. PLAN TO TRANSFER TO [facility], AWAITING LIFE FLIGHT. MOTHER UPDATED. WILL CONTINUE TO MONITOR UNTIL REPORT TO NOC SHIFT OR TRANSFER.
[2021-04-04 03:52] LABS: BASOPHILS ABSOLUTE AUTO 0.05 K/mm3 (0.00-0.23); BASOPHILS PERCENT AUTO 0 % (0-2); EOSINOPHILS ABSOLUTE AUTO 0.01 K/mm3 (0.00-0.68); EOSINOPHILS PERCENT AUTO 0 % (0-6); Hematocrit 42.3 % (33.0-51.0); Hemoglobin 13.9 g/dL (11.5-16.0); IMMATURE GRAN ABSOLUTE AUTO 0.35 K/mm3 (0.00-0.10); IMMATURE GRAN PERCENT AUTO 1 % (0-1); LYMPHOCYTES ABSOLUTE AUTO 1.15 K/mm3 (0.84-5.20); LYMPHOCYTES PERCENT AUTO 4 % (21-46); MONOCYTES ABSOLUTE AUTO 1.17 K/mm3 (0.16-1.47); MONOCYTES PERCENT AUTO 4 % (4-13); Mean Corpuscular HGB 30.2 pg (26.0-34.0); Mean Corpuscular HGB Conc 32.9 g/dL (31.5-36.5); Mean Corpuscular Volume 92 fL (80-100); Mean Platelet Volume 9.7 fL (9.1-12.4); NEUTROPHILS ABSOLUTE AUTO 26.18 K/mm3 (1.96-9.15); NEUTROPHILS PERCENT AUTO 91 % (41-73); Platelet Count 361 K/mm3 (150-400); RDW Coefficient Variation 13.8 % (11.7-14.2); RDW Standard Deviation 45.7 fL (35.1-46.3); White Blood Cell Count 28.91 K/mm3 (4.00-11.30)
[2021-04-04 04:10] LABS: Anion Gap 4 mmol/L (6-16); Blood Urea Nitrogen 40 mg/dL (8-24); CO2, Blood 25 mmol/L (21-32); Calcium, Blood 9.3 mg/dL (8.5-10.1); Chloride, Blood 115 mmol/L (98-108); Creatinine, Blood 0.48 mg/dL (0.40-1.00); Glomerular Filtration Rate >60 (60-); Glucose, Blood 264 mg/dL (70-99); Magnesium, Blood 2.7 mg/dL (1.6-2.4); Potassium, Blood 4.1 mmol/L (3.5-5.5); Sodium, Blood 144 mmol/L (136-145)
--- NOTE | 2021-04-04 06:23 | NUR ---
END OF SHIFT SUMNMARY: PATIENT TOLERATED PS MOST OF EVENING UNTIL ABOUT 0400 WHEN SHE WAS BREATHING IN 50-60S AND WOULD NOT CALM DOWN DESPITE PRN FENTANYL. 50 OF FENTANYL GIVEN X4 OVERNIGHT DUE TO RAPID AND SHALLOW BREATHING AND REALLY SEEMS TO HELP CALM HER DOWN AND NOT FIGHT THE VENT. PATIENT WILL FOLLOW COMMANDS AND SHAKE HEAD TO SOME QUESTIONS. RECTAL TUBE STILL NEEDED. GREAT URINE OUTPUT. PATIENT REMAINS RESTRAINED
--- NOTE | 2021-04-04 08:30 | NUR ---
INITIAL ASSESSMENT PATIENT INTUBATED. PATIENT APPEARING TO RESPOND TO VERBAL STIMULI WITH ANXIETY. PATIENT IS NOT FOLLOWING ANY SIMPLE COMMANDS THIS AM. PATIENT DOES OCCASIONALLY HAVE MINIMAL, NON- PURPOSEFUL, WEAK, GROSS MOVEMENTS TO EXTREMITIES. PATIENT KEEPING EYES OPEN AND DOES NOT APPEAR TO BE BLINKING ADEQUATELY. EYES REDDENED. EYES TAPED CLOSE WITH PAPER TAPE. EYES FIXED FORWARD; NO TRACKING NOTED. PATIENT VERY ANXIOUS THIS AM AND LOOKS VERY UNCOMFORTABLE. PATIENT ON FENTANYL DRIP AT 25 MCG/ HOUR. PRN FENTANYL PUSH GIVEN AND PRN BUSPAR GIVEN PT. PATIENT DOES APPEAR SLIGHTLY BETTER. PATIENT HAS TEMP OF 100.2 DEGREES FAHRENHEIT THIS AM. PATIENT ON SPONTANEOUS PS 12/5, 30% FIO2. LUNGS WHEEZY THROUGHOUT. SMALL AMOUNT OF THIN, YELLOW SPUTUM BEING SUCTIONED FROM ETT. RR UP TO THE 50S. PATIENT APPEARS TO BE IN MAT/ SR/ ST WITH PACS. HR 80S TO 130S. SBP 130S TO 140S. TRACE EDEMA NOTED TO EXTREMITIES. ABDOMEN MILDLY DISTENDED, SOFT, WITH HYPOACTIVE BS NOTED. TF INFUSING AT GOAL RATE OF 45 MLS/ HOUR WITH 30 ML WATER FLUSH Q4H. RESIDUAL OF ZERO THIS AM. RECTAL TUBE IN PLACE DRAINING BROWN, LIQUID STOOL. TEMP URBANO DRAINING YELLOW COLORED URINE. MEPILEX TO REDDENED COCCYX. SCATTERED BRUISES NOTED. SKIN PALE AND FRAGILE. PATIENT BEING REPOSITIONED Q2H AND PRN. BED LOW, CALL LIGHT IN REACH. WILL CONTINUE TO MONITOR PATIENT FREQUENTLY THROUGHOUT SHIFT.
--- NOTE | 2021-04-04 10:00 | NUR ---
DR. ARANDA UPDATED ON PATIENT STATUS. INFORMED OF INCREASE IN WBCS. INFORMED THAT PATIENT HAS BEEN APPEARING UNCOMFORTABLE THIS AM AND THAT PRN FENTANYL PUSH AND PRN BUSPAR GIVEN THIS AM. NO ORDERS RECEIVED AT THIS TIME.
--- NOTE | 2021-04-04 13:10 | NUR ---
PATIENT HAS TEMP OF 99.5 DEGREES FAHRENHEIT. PATIENT STARTED ON PRECEDEX TO TRY AND HELP WITH ANXIETY AND AGITATION. FENTANYL DRIP PLACED ON SB BECAUSE OF PRECEDEX EFFECT ON BP. PRN FENTANYL PUSHES WILL CONTINUE FOR SIGNS OF PAIN/ DISCOMFORT. RESTRAINTS DC'D PATIENT PATIENT NOT TRYING TO GRAB AT CRITICAL LINES AND CORDS. PATIENT NOW ABLE TO FOLLOW SOME COMMANDS SUCH WIGGLING TOES, SQUEEZING WITH L HAND. NO RESPONSE FROM R HAND NOTED. PATIENT ABLE TO SHAKE HEAD "NO" WHEN ASKED IF IN PAIN. PATIENT ON 06/05, 30% FIO2. HR IN THE LOW 100S. SBP 130S TO 150S. CALL LIGHT IN REACH.
[2021-04-04 13:14] LABS: C DIFFICILE DNA Duplicate (Negative)
--- NOTE | 2021-04-04 16:08 | NUR ---
PATIENT HAS TEMP OF 99.3 DEGREES FAHRENHEIT. PRECEDEX DRIP AT 0.7 MCG/ KG/ HOUR. FENTANYL DRIP AT 13 MCG/ HOUR. HR 90S TO LOW 100S. SBP 1-TEENS TO 130S. PATIENT ON AC 16, TV 450, PEEP 5 AND 30% FIO2. WILL CONTINUE TO MONITOR.
--- NOTE | 2021-04-04 18:41 | NUR ---
SHIFT SUMMARY PATIENT REMAINED INTUBATED. PATIENT WOULD, FOR THE MOST PART, FOLLOW SIMPLE COMMANDS. PATIENT DID NOT MOVE R ARM/ HAND TO VERBAL COMMAND BUT NURSE DID VISUALIZE PATIENT MOVE IT DURING THE SHIFT. PATIENT REMAINED VERY ANXIOUS AT TIMES; PRN BUSPAR GIVEN, PRECEDEX STARTED. PRECEDEX DRIP CURRENTLY AT 0.5 MCG/ KG/ HOUR. FENTANYL DRIP AT 13 MCG/ HOUR. PATIENT HAD MAX TEMP OF 100.2 DEGREES FAHRENHEIT. PATIENT ON SPONTANEOUS PS 12 TO 10/ 5 AND 30% FIO2. PATIENT SWITCHED TO AC 16, TV 450, PEEP 5 AND 30% FIO2 IN AFTERNOON RR IN THE 50S. SMALL AMOUNT OF YELLOW SPUTUM SUCTIONED FROM ETT T/O SHIFT. PATIENT APPEARED TO BE IN MAT/ SR/ ST WITH PACS DURING SHIFT. HR 70S TO 130S. SBP 50S TO 160S. PATIENT HYPERTENSIVE WITH ANXIETY AND BECAME HYPOTENSIVE WHEN PRECEDEX INCREASED TO 0.7 MCG/ HOUR. BLOOD PRESSURE STABLE AT THIS TIME ON CURRENT PRECEDEX AND FENTANYL SETTINGS. MINIMAL LIQUID, BROWN OUTPUT FROM RECTAL TUBE. TF REMAINED AT GOAL RATE. GOOD URINE OUTPUT. LEVAQUIN STARTED THIS SHIFT. SPUTUM CULTURE OBTAINED. RESTRAINTS DC'D. PATIENT OOB TO CHAIR. PATIENT HAD COMPLETE BED BATH. PATIENT APPEARS COMFORTABLE AT THIS TIME. BED LOW, CALL LIGHT IN REACH. REPORT WILL BE GIVEN TO ONCOMING DIRECTOR SALES NURSE SHORTLY.
[2021-04-05 04:30] LABS: BASOPHILS ABSOLUTE AUTO 0.04 K/mm3 (0.00-0.23); BASOPHILS PERCENT AUTO 0 % (0-2); EOSINOPHILS PERCENT AUTO 0 % (0-6); Hematocrit 39.5 % (33.0-51.0); Hemoglobin 13.1 g/dL (11.5-16.0); IMMATURE GRAN ABSOLUTE AUTO 0.17 K/mm3 (0.00-0.10); IMMATURE GRAN PERCENT AUTO 1 % (0-1); LYMPHOCYTES ABSOLUTE AUTO 0.94 K/mm3 (0.84-5.20); LYMPHOCYTES PERCENT AUTO 4 % (21-46); MONOCYTES PERCENT AUTO 4 % (4-13); Mean Corpuscular HGB 30.5 pg (26.0-34.0); Mean Corpuscular HGB Conc 33.2 g/dL (31.5-36.5); Mean Corpuscular Volume 92 fL (80-100); NEUTROPHILS ABSOLUTE AUTO 20.42 K/mm3 (1.96-9.15); NEUTROPHILS PERCENT AUTO 90 % (41-73); Platelet Count 332 K/mm3 (150-400); RDW Coefficient Variation 13.7 % (11.7-14.2); RDW Standard Deviation 46.1 fL (35.1-46.3); Red Blood Cell Count 4.29 M/mm3 (3.80-5.20); White Blood Cell Count 22.57 K/mm3 (4.00-11.30)
[2021-04-05 04:51] LABS: Anion Gap 5 mmol/L (6-16); Blood Urea Nitrogen 41 mg/dL (8-24); Bun/Creatinine Ratio 89.1 (12.0-20.0); CO2, Blood 24 mmol/L (21-32); Calcium, Blood 9.1 mg/dL (8.5-10.1); Chloride, Blood 118 mmol/L (98-108); Creatinine, Blood 0.46 mg/dL (0.40-1.00); Glomerular Filtration Rate >60 (60-); Glucose, Blood 309 mg/dL (70-99); Magnesium, Blood 2.7 mg/dL (1.6-2.4); Potassium, Blood 3.9 mmol/L (3.5-5.5); Sodium, Blood 147 mmol/L (136-145)
--- NOTE | 2021-04-05 06:33 | NUR ---
END OF SHIFT SUMMARY: NO ACUTE CHANGE OVERNIGHT. PATIENT HAS BEEN MORE AWARE AND WILL NOW MOVE ALL EXTREMITIES SPONTANEOUSLY. SHE CONTINUES TO FOLLOW COMMANDS AND HAS HAD MORE GROSS MOVEMENT TO UPPER EXTREMITIES. ENOUGH SO THAT I FELT THAT SHE NEEDED RESTRAINTS AGAIN. SHE HAS BEEN ON AC CONTROL ALL EVENING WITH NO SETTING CHANGES. SHE CONTINUES TO BREATHE RAPIDLY OVER THE VENT AND PRN FENTANYL ONLY HELPS HER FOR SO LONG. PRECEDEX ON TOLERATED. URINE OUTPUT IS STILL ADEQUATE BUT IS STARTING TO GET SEDIMENT. Q2 TURNS COMPLETE.
--- NOTE | 2021-04-05 08:00 | NUR ---
DR. ARANDA UPDATED ON PATIENT STATUS. INFORMED THAT PATIENT VERY UNCOMFORTABLE AND ANXIOUS THIS AM. INFORMED THAT PRECEDEX CAN ONLY BE TITRATED UP SO FAR BEFORE PATIENT BECOMES HYPOTENSIVE. INFORMED THAT BLOOD SUGARS HAVE BEEN TRENDING UP. ORDER RECEIVED FOR SLIDING SCALE INSULIN.
--- NOTE | 2021-04-05 09:00 | NUR ---
INITIAL ASSESSMENT PATIENT INTUBATED. PATIENT APPEARS UNCOMFORTABLE AND ANXIOUS. PRECEDEX INCREASED. PATIENT TURNS HEAD TOWARD NURSE VOICE. PATIENT NOT TRACKING WITH EYES AT THIS TIME. EYE REDDENED. PATIENT ABLE TO SHAKE HEAD "NO" WHEN ASKED IF IN PAIN. PATIENT ABLE TO SQUEEZE WITH BILAT HANDS AND WIGGLE TOES ON BILAT FEET. MOUTH REMAINS WIDE OPEN. BODY RIGID. TEMP OF 99.1 DEGREES FAHRENHEIT THIS AM. PATIENT ON AC 16, TV 450, PEEP 5, 30% FIO2. LUNGS CLEAR IN UPPER LOBES AND DIMINISHED IN LOWER LOBES. SMALL AMOUNT OF THIN, YELLOW SECRETIONS BEING SUCTIONED FROM ETT. PATIENT TACHY AT TIMES. PATIENT IN SB/ ST,HR 50S TO 100. SBP 60S TO 120S. HYPOACTIVE BS NOTED. RECTAL TUBE IN PLACE; LEAKS AT TIMES. TF INFUSING AT GOAL RATE. RESIDUAL OF 110 MLS OBTAINED AND REINSTILLED THIS AM. URBANO DRAINING YELLOW COLORED URINE WITH SEDIMENT NOTED. MEPILEX TO REDDENED COCCYX. SCATTERED BRUISES NOTED. SKIN PALE AND FRAGILE. PATIENT BEING REPOSITIONED Q2H. NS TKO X 2. BED LOW, CALL LIGHT IN REACH. WILL CONTINUE TO MONITOR PATIENT FREQUENTLY THROUGHOUT SHIFT.
--- NOTE | 2021-04-05 09:47 | NUR ---
FIO2 INCREASED TO 100% PER DR. ARANDA.
--- NOTE | 2021-04-05 12:40 | NUR ---
PATIENT HAS TEMP OF 99.6 DEGREES FAHRENHEIT. PROPOFOL INCREASED TO 15 MCG/ KG/ MINUTE FOR AGITATION. PATIENT ON AC 16, TV 450, PEEP 5 AND 100% FIO2 FOR SMALL PNEUMO PER DR. ARANDA. HR 90S TO LOW 100S. SBP 120S TO 130S. RR IN THE 20S. BLOOD SUGAR OF 254; COVERAGE GIVEN ORDERED. NO OTHER ACUTE CHANGES TO NOTE ON AT THIS TIME. WILL CONTINUE TO MONITOR.
--- NOTE | 2021-04-05 12:52 | NUR ---
Ethics consultation order for case review initiated. 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 A concern was expressed regarding the principal having lawful and adequate substitute decision-making support. It has been confirmed and is recorded in the EHR that the principal has a default proxy who is available and willing to assist with treatment planning. The principals grandson has met with palliative care and discussed the reasonableness of forgoing aggressive measures of intervention, if sadly the principal undergoes further decline, and it becomes improbable that she will experience a meaningful recovery. Conversely, if the principal continues to show signs of improvement and positive change, a plan supporting rehabilitation will be maintained. If further attention on my part is needed, please do not hesitate to reach out. Thank you for this consult. Enrrique Guajardo Th.D.
--- NOTE | 2021-04-05 16:10 | NUR ---
PATIENT HAS TEMP OF 100 DEGREES FAHRENHEIT. HR 90S TO LOW 100S. SBP LOW 100S TO 120S. RR 20S TO 30S. FIO2 REMAINS AT 100%. BED BATH COMPLETE. NO OTHER ACUTE CHANGES TO NOTE ON AT THIS TIME. WILL CONTINUE TO MONITOR.
--- NOTE | 2021-04-05 18:49 | NUR ---
SHIFT SUMMARY PATIENT CONTINUED TO RESPOND TO VERBAL STIMULI AND FOLLOWING SIMPLE COMMANDS. PATIENT HAS NOT TRACKED WITH EYES ALL OF SHIFT BUT IS TURNING HEAD TOWARD NURSE OCCASIONALLY. PATIENT HAS REMAINED INTUBATED. BODY REMAINS RIGID. PATIENT CHANGED FROM PRECEDEX TO PROPOFOL AND FIO2 INCREASED TO 100% AFTER SMALL PNEUMO NOTED ON CHEST XR. PATIENT HAD TMAX OF 100.2 DEGREES FAHRENHEIT. RR MOSTLY 20S TO 30S. PATIENT SB TO ST, HR 50S TO LOW 100S. SBP 50S TO 150S. PATIENT HYPOTENSIVE AT TIMES ON PRECEDEX THIS AM. BOWEL SOUNDS REMAINED HYPOACTIVE. RECTAL TUBE DRAINED 250 MLS OF BROWN, LIQUID STOOL. SMALL AMOUNT OF LEAKING THIS SHIFT. TF REMAINED INFUSING AT GOAL RATE. URBANO DRAINED ADEQUATE AMOUNT OF YELLOW COLORED URINE. SEDIMENT NOTED. NO CHANGE TO SKIN NOTED. PATIENT REPOSITIONED Q2H DURING SHIFT. PICC INSERTED AND CENTRAL LINE DC'D THIS SHIFT. BED BATH PERFORMED THIS SHIFT. BLOOD SUGARS 224 TO 254. MEDIUM SLIDING SCALE INSULIN STARTED THIS SHIFT. PATIENT APPEARS COMFORTABLE AT THIS TIME. BED LOW, CALL LIGHT IN REACH. REPORT WILL BE GIVEN TO ONCOMING IRON PELLET TESTER NURSE SHORTLY.
--- NOTE | 2021-04-06 05:27 | NUR ---
END OF SHIFT SUMMARY: PATIENT HAS BEEN MUCH MORE COMFORTABLE ON THE VENT OVERNIGHT. SHE REMAINS AT 100% DUE TO LISA PNEUMOS. SHE WILL WAKE UP AND FOLLOW COMMANDS. PATIENT ON 15 OF PROPOFOL AND NO BP ISSUES WITH THAT. GREAT URINE OUTPUT. TURNED Q2
--- NOTE | 2021-04-06 07:45 | NUR ---
ASSUMED PT CARE REPORT FROM EDIN BOX AT 0655. ASSUMED PT CARE. ASSESSMENT COMPLETE AT THIS TIME. PT INTUBATED AND SEDATED, ETT 24CM AT LIP, SECURE. OG SECURE WITH PIVOT 1.5 INF AT 45ML/HR. VENT SETTINGS AC16/450/5/100. PER REPORT PT TO REMAIN ON 100% FIO2 UNTIL RN DERMATOLOGY STATES OTHERWISE DUE TO PNEUMOS. LUNG SOUNDS COARSE AND DIMINISHED, PT TACHYPNEAIC AT TIMES. COUGHS, GAG PRESENT. UNABLE TO SWALLOW. SPUTUM YELLOW AND THIN. RECTAL TUBE NOTED WITH LIQUID BROWN STOOL. TEMP URBANO DRAINING CLOUDY YELLOW URINE. RESTRAINTS SECURE. PICC LINE TO MARIE WITH FENTANYL INF AT 13MCG AND PROPOFOL INF AT 15MCG. SEE FULL SHIFT ASSESSMENT.
--- NOTE | 2021-04-06 14:05 | NUR ---
CT STAFF NOT AVAIL FOR IMAGING. STATES THEY MIGHT BE AVIL AT 1730. CHARGE AWARE.
--- NOTE | 2021-04-06 17:30 | NUR ---
CT STILL UNAVAILABLE.
--- NOTE | 2021-04-06 18:55 | NUR ---
SHIFT SUMMARY PT REMAINS INTUBATED AND SEDATED. PROPOFOL INF AT 15MCG, FENTANYL INF AT 20MCG. NS AT KVO. PICC LINE TO MARIE, SITE WNL, DRESSING C/D/I. ABD SOFT, BOWEL SOUNDS PRESENT. OG SECURE WITH PIVOT 1.5 INF AT 45ML/HR. ETT SECURE 24CM AT LIP. LUNG SOUNDS COARSE. VENT SETTINGS SPONTANEOUS, FIO2 50%. SKIN INTACT MOSTLY, MEPILEX REMAINS CLEAN AND INTACT TO COCCYX. TEMP URBANO DRAINING CLOUDY YELLOW URINE. RECTAL TUBE DRAINGING LIQUID BROWN STOOL. CT COMPLETE THIS EVENING. NO SIGNIFICANT CHANGES THROUGHOUT SHIFT. WILL REPORT TO ONCOMING RN.
--- NOTE | 2021-04-06 20:30 | NUR ---
ASSUMED CARE AT 1900 PT LAYING IN BED INTUBATED WITH VENT SETTINGS SPONT 8/5, FIO2 50%, TV 450'S; SCANT AMOUNT OF SECREATIONS NOTED. PT IS REACTIVE TO VERBAL STIMULATION; IS ABLE TO MINIMALLY FOLLOW DIRECTIONS AND MINIMALLY NOD HEAD TO Y/O QUESTIONS; RT HAND GRASP STRONGER THAN LT; GAG AND COUGH PRESENT; PROPOFOL INFUSING AT 15MCG/KG/MIN; FENTANYL JUNIOR WEB DEVELOPER INFUSING AT 20MCG/HR. HR 80-90'S. BP STABLE. PIVOT INFUSING VIA OG AT 45ML/HR (GOAL) WITH 30ML WATER FLUSHES Q4HR; MINIMAL RESIDUALS NOTED. URBANO AND RECTAL TUBE IN PLACE AND DRAINING TO GRAVITY. SEE SHIFT ASSESSMENT FOR FULL ASSESSMENT.
--- NOTE | 2021-04-07 02:14 | NUR ---
UPDATE CALLED DR MELVIN REGARDING THE INCREASED CREPITUS AND SWELLING TO PT NECK. MINIMAL DISTINCTION BETWEEN CHIN AND NECK. NO NEW ORDERS PROVIDED AND TO CONT TO MONITOR NECK.
[2021-04-07 04:44] LABS: BASOPHILS ABSOLUTE AUTO 0.04 K/mm3 (0.00-0.23); BASOPHILS PERCENT AUTO 0 % (0-2); EOSINOPHILS ABSOLUTE AUTO 0.06 K/mm3 (0.00-0.68); EOSINOPHILS PERCENT AUTO 0 % (0-6); Hematocrit 41.5 % (33.0-51.0); Hemoglobin 13.1 g/dL (11.5-16.0); IMMATURE GRAN ABSOLUTE AUTO 0.23 K/mm3 (0.00-0.10); IMMATURE GRAN PERCENT AUTO 1 % (0-1); LYMPHOCYTES ABSOLUTE AUTO 1.09 K/mm3 (0.84-5.20); LYMPHOCYTES PERCENT AUTO 5 % (21-46); MONOCYTES ABSOLUTE AUTO 0.95 K/mm3 (0.16-1.47); MONOCYTES PERCENT AUTO 4 % (4-13); Mean Corpuscular HGB 29.8 pg (26.0-34.0); Mean Corpuscular HGB Conc 31.6 g/dL (31.5-36.5); Mean Corpuscular Volume 95 fL (80-100); NEUTROPHILS ABSOLUTE AUTO 19.26 K/mm3 (1.96-9.15); NEUTROPHILS PERCENT AUTO 89 % (41-73); Platelet Count 329 K/mm3 (150-400); RDW Coefficient Variation 14.2 % (11.7-14.2); RDW Standard Deviation 48.6 fL (35.1-46.3); Red Blood Cell Count 4.39 M/mm3 (3.80-5.20); White Blood Cell Count 21.63 K/mm3 (4.00-11.30)
[2021-04-07 05:05] LABS: Albumin, Blood 2.7 g/dL (3.4-5.0); Anion Gap 6 mmol/L (6-16); Blood Urea Nitrogen 38 mg/dL (8-24); Bun/Creatinine Ratio 86.4 (12.0-20.0); CO2, Blood 24 mmol/L (21-32); Calcium, Blood 9.3 mg/dL (8.5-10.1); Chloride, Blood 118 mmol/L (98-108); Creatinine, Blood 0.44 mg/dL (0.40-1.00); Glomerular Filtration Rate >60 (60-); Glucose, Blood 231 mg/dL (70-99); Phosphorus, Blood 2.6 mg/dL (2.5-4.9); Potassium, Blood 3.7 mmol/L (3.5-5.5); Sodium, Blood 148 mmol/L (136-145)
--- NOTE | 2021-04-07 07:12 | NUR ---
END OF SHIFT SUMMARY PT CONT TO BE INTUBATED WITH VENT SETTINGS AC 16, TV 450, PEEP 5, FIO2 30%; PT SWITCHED FROM SPONT TO AC DUE TO APNEA; SCANT AMOUNT OF SECREATIONS NOTED; CREPATIS TO LT SIDE OF NECK CONT ALONG WITH SWELLING. PT FOLLOWS MINIMAL DIRECTIONS AND MINIMALLY ANSWERS Y/N QUESTIONS; PROPOFOL INFUSING AT 5MCG/KG/MIN; FENTANYL SET UP MECHANIC COIL WINDING MACHINES INFUSING AT 20MCG/HR. AFEBRILE. HR 80-110. SBP 90-120. PIVOT INFUSING VIA OG AT 45ML/HR WITH 30ML FLUSHES Q4HR; MINIMAL RESIDUALS. RECTAL TUBE AND URBANO PATENT AND DRAINING TO GRAVITY. REPORT GIVEN TO HIWOT Irby
--- NOTE | 2021-04-07 07:15 | NUR ---
ASSUMED PT CARE BEDSIDE REPORT AND ROUNDS WITH MARIELLA BOX. ASSUMED PT CARE. ASSESSMENT COMPLETE AT THIS TIME. PT REMAINS INTUBATED AND SEDATED. TUBE SECURE AT 24CM AT LIP. PT HAS SUBQ CREPITUS TO CHEST/NECK. VENT SETTINGS AC 16/450/5/30, SATS >92%. HR 80-120S, SR TO IRREGULAR. PULSES STRONG AND EQUAL. SBP 118. PT HAS PICC TO MARIE WITH PROPOFOL INF AT 5MCG AND FENTANYL INF AT 20MCG. SITE WNL. DRESSING INTACT. SOME BLOOD NOTED. NO REDNESS. TEMP URBANO DRAINING CLOUDY YELLOW URINE. RECTAL TUBE DRAINGING LIQUID BROWN STOOL. HEEL PROTECTORS IN PLACE, MEPILEX TO COCCYX. OG IN PLACE WITH JEVITY 1.5 INF AT 45ML/HR. SEE FULL SHIFT ASSESSMENT.
--- NOTE | 2021-04-07 14:50 | NUR ---
IMAGING TO ROOM FOR STAT CHEST XRAY. DISCUSSED PROGRESSION OF NECK SWELLING WITH DR MELVIN WHO STATES THAT WE COULD ORDER A CHEST XRAY. PER DR MELVIN CT RESULTS RULED OUT PNEUMOTHORAX. EXPLAINED THAT SWELLING HAS WORSENED DURING SHIFT AND THAT SUBQ CREPITUS EXTENDS INTO CHEST/AROUND SIDES OF NECK AND SHOULDERS. DR MELVIN SAW PT. STATES ITS "PURELY COSMETIC" AND TO "MONITOR FOR SIGNS/SYMPTOMS OF SHOCK/TENSION PNEUMO". DR MELVIN TO LOOK AT XRAY.
--- NOTE | 2021-04-07 17:15 | NUR ---
Spoke with pt's son [place] yesterday afternoon, and he is planning to come in today around 1730 to speak with myself and Dr. Emanuel who is aware pt is planning a visit today. This will be his first visit to see pt, who has not made much progress unfortunately. However, the option for trach and PEG tube are there, but Dr. Emanuel wants to speak to pt's son prior to making any further decisions.
--- NOTE | 2021-04-07 17:30 | NUR ---
DR MELVIN, PC AND GRANDSON TO CONSULT ROOM TO DISCUSS PLAN OF CARE.
--- NOTE | 2021-04-07 18:28 | NUR ---
SHIFT SUMMARY PT REMAINS INTUBATED AND SEDATED ON PROPOFOL AT 15MCG/KG, AND FENTANYL AT 25MCG/HR. PT SATS >92% CURRENTLY ON SPONTANEOUS PRESSURE SUPPORT. SBP STABLE, PT HAS OCCASSIONAL LABILE PRESSURES BUT RADIAL/PEDAL PULSES REMAINED STRONG. PICC LINE TO MARIE INTACT, DRESSING CHANGED TODAY. GOOD BLOOD RETURN, INFUSIONS FLOWING WELL, NO REDNESS NOTED. 5CM EXPOSED. LUNG SOUNDS CLEAR TO UPPER, DIMINISHED TO LOWER. OG SECURE WITH PIVOT 1.5 INF AT 45ML/HR. H20 FLUSHES INCREASED TO 250ML EVERY [address] MELVIN. ABD SOFT. TEMP URBANO DRAINING YELLOW URINE. RECTAL TUBE DRAINING LIQUID BROWN STOOL. RESTRAINTS SECURE. DR MELVIN AND PALLIATIVE CARE SPOKE AT LENGTH WITH PTS FIDELIA SALMOÓN RE TREATMENT PLAN AND OPTIONS. WILL CONTINUE TO MONITOR AND WILL REPORT TO ONCOMING SHIFT.
--- NOTE | 2021-04-07 18:43 | NUR ---
PT GRANDSON AND NEPHEW TO ROOM.
--- NOTE | 2021-04-07 20:57 | NUR ---
Pt's son (grandson) made the decision to change her code status to DNR. He had a long talk with Dr. Emanuel, and visited the patient as well. He was tearful, but he seemed very confident he was making the right decision, and the decision the patient would want.
--- NOTE | 2021-04-07 22:13 | NUR ---
ASSUMED CARE AT 1900 PT GRANDSON AND NEPHEW IN ROOM WITH PALLIATIVE CARE AT SHIFT CHANGE FOLLOWED BY JOSUE CHANGING PT CODE STATUS TO DNR. PT INTUBATED WITH VENT SETTINGS SPONT 8/5, FIO2 30%, TV 350-450. PT REACTIVE TO NOXIOUS STIMULI; DOES NOT FOLLOW DIRECTIONS; WEAK SPONTANIOUS MOVEMENT FROM LT HAND; PROPOFOL INFUSING AT 10MCG/KG/HR; FENTANYL GOLD NIB GRINDER INFUSING AT 25MCG/HR. AFEBRILE. HR 100'S. SBP 80-130. SEE NEXT NOTE REGARDING OG. RECTAL TUBE AND URBANO IN PLACE AND DRAINING TO GRAVITY. PICC DRESSING C/D/I. SEE SHIFT ASSESSMENT FOR FULL ASSESSMENT.
--- NOTE | 2021-04-07 22:22 | NUR ---
OG RN ATTEMPTED TO FLUSH OG AND WAS UNABLE TO. NO VISIBLE CLOGS NOTED. OG PULLED AND FOUND TO BE KINKED AND CLOGGED. NEW OG PLACED. XRAY AFTERWARDS FOLLOWED BY DR ZAPATA READING XRAY AND PROVIDING INSTUCTION TO PULL BACK 4 CM. THIS RN FOLLOWED INSTRUCTION, FLUSHED, GAVE MEDS PER TUBE, AND RESTARTED PIVOT AT 45ML/HR (GOAL) WITH 250ML WATER FLUSHES Q4HR.
--- NOTE | 2021-04-08 01:44 | NUR ---
CALL TO MD CALL TO DR MELVIN REGARDING HYPOTENSION BP 61/44(49) HEART RATE 80. ORDER OBTAINTED TO START LEVOPHED.
[2021-04-08 04:46] LABS: BASOPHILS ABSOLUTE AUTO 0.04 K/mm3 (0.00-0.23); BASOPHILS PERCENT AUTO 0 % (0-2); EOSINOPHILS ABSOLUTE AUTO 0.08 K/mm3 (0.00-0.68); EOSINOPHILS PERCENT AUTO 0 % (0-6); Hematocrit 39.4 % (33.0-51.0); Hemoglobin 12.5 g/dL (11.5-16.0); IMMATURE GRAN ABSOLUTE AUTO 0.32 K/mm3 (0.00-0.10); IMMATURE GRAN PERCENT AUTO 2 % (0-1); LYMPHOCYTES ABSOLUTE AUTO 1.04 K/mm3 (0.84-5.20); LYMPHOCYTES PERCENT AUTO 5 % (21-46); MONOCYTES ABSOLUTE AUTO 1.09 K/mm3 (0.16-1.47); MONOCYTES PERCENT AUTO 5 % (4-13); Mean Corpuscular HGB 30.5 pg (26.0-34.0); Mean Corpuscular HGB Conc 31.7 g/dL (31.5-36.5); Mean Corpuscular Volume 96 fL (80-100); Mean Platelet Volume 10.2 fL (9.1-12.4); NEUTROPHILS ABSOLUTE AUTO 19.33 K/mm3 (1.96-9.15); NEUTROPHILS PERCENT AUTO 88 % (41-73); Platelet Count 330 K/mm3 (150-400); RDW Coefficient Variation 14.6 % (11.7-14.2); RDW Standard Deviation 50.4 fL (35.1-46.3)
[2021-04-08 05:04] LABS: Albumin, Blood 2.6 g/dL (3.4-5.0); Anion Gap 4 mmol/L (6-16); Blood Urea Nitrogen 41 mg/dL (8-24); Bun/Creatinine Ratio 79.5 (12.0-20.0); CO2, Blood 25 mmol/L (21-32); Calcium, Blood 8.8 mg/dL (8.5-10.1); Chloride, Blood 119 mmol/L (98-108); Creatinine, Blood 0.52 mg/dL (0.40-1.00); Glomerular Filtration Rate >60 (60-); Glucose, Blood 177 mg/dL (70-99); Phosphorus, Blood 3.6 mg/dL (2.5-4.9); Potassium, Blood 3.7 mmol/L (3.5-5.5); Sodium, Blood 148 mmol/L (136-145)
--- NOTE | 2021-04-08 06:41 | NUR ---
END OF SHIFT SUMMARY PT CONT TO BE INTUBATED WITH VENT SETTINGS SPONT 8/5, FIO2 30%, TV 350-450; ON SPONT ALL NIGHT; INCREASED SWELLING TO NECK TRAVELING TO BACK OF NECK AND UP INTO FACE, INCREASED CREPITUS TOO. PT REACTIVE TO NOXIOUS STIMULI BUT NOT FOLLOWING DIRECTION AND NOT TRACKING; PROPOFOL INFUSING AT 15MCG/KG/MIN; FENTANYL INFUSING AT 25MCG/HR. AFEBRILE. HR 70-100. SBP 90-140 WITH LEVOPHED INFUSING AT 4MCG/MIN. PIVOT INFUSING VIA OG AT 45ML/HR (GOAL) WITH 250ML WATER FLUSHES Q4HR. RECTAL TUBE AND URBANO PATENT AND DRAINING TO GRAVITY. WILL REPORT TO AM RN WHEN AVAILABLE.
--- NOTE | 2021-04-08 10:32 | NUR ---
[facility] of Care: Care assumed at 0700hr. Patient intubated and sedated, with propofol gtt at 15mcg/kg/min, fentanyl HUMAN DEVELOPMENT PROFESSOR at 25mcg/hr. Patient opens eyes spontaneously, but not tracking staff or following any commands, no movement of extremities. Facial grimace with noxious stimuli (oral care), Propofol gtt increased to 20mcg/kg/min. Will continue to monitor and assess need for prn pain medications, but appears comfortable at this time. Vent to PS of 8/5/30%, spO2 96-98%, tolerating vent without difficulty. PICC line to MARIE patent and intact, infusing without difficulty. Levophed gtt at 2mcg/min (shift change), BP stable with systolic's in the 130's, therefore levophed placed on stand-by. Mendoza cath patent and intact, draining clear dark yellow urine. NOC shift RN and Dr. Emanuel informed this RN that patient's family plans to transition to comfort measures today. Will continue to monitor.
--- NOTE | 2021-04-08 17:43 | NUR ---
Pt's biological daughter Healther came to see pt today. She was tearful, but appropriate. She is aware pt's code status is now DNR, and she states she is in support of that. I attempted to call pt's son [place] and left a message, but no return call as of now. No change in condition today.
--- NOTE | 2021-04-08 18:35 | NUR ---
Shift Summary: No significant changes throughout shift. VSS and continues to tolerate vent without difficulty. Crepitus to upper chest and neck continues to slowly worsen throughout shift, Dr. Emanuel aware, informed chest tube placement is not indicated at this time. Patient's daughter in to see patient today for several hours. This RN spoke then with Ofe, palliative care RN. Informed from Ofe that plan was for daughter to see patient then grandson (decision maker), plans to transition patient to comfort measures. No calls or visitation from grandson throughout shift. This RN then again spoke with Ofe RN at approx 1730hr. Informed from Ofe that she has been unable to contact grandson, but has left messages. Patient remains unable to move any extremities, other than becoming more tense with cares. Slight improvement as patient was able to nod head "yes", but not able to follow any other commands. Patient answered "yes" to pain. X2 prn fentanyl given with good effect noted. Propofol gtt also increased as patient appeared wide awake, now sleeping and appears comfortable. Will continue to monitor until report to NOC shift RN.
--- NOTE | 2021-04-08 22:00 | NUR ---
ASSUMED CARE AT 1900 PT LAYING IN BED INTUBATED WITH VENT SETTINGS SWITCHED FROM SPONT TO AC DUE TO APNEA AT 2030; VENT SETTINGS AC 18, TV 450, PEEP 5, FIO2 30%. PT REACTIVE TO NOXIOUS STIMULI BUT DOES NOT FOLLOW DIRECTIONS; GAG AND COUGH PRESENT; PROPOFOL INFUSING AT 30MCG/KG/MIN; FENTANYL INFUSING AT 25MCG/MIN; PT CONT TO LOOK UNCOMFORTABLE WITH CPOT 4-5, FENTANYL PUSHES AVAILABLE, GIVEN, AND HELPFUL. AFEBRILE. HR 70'S. SBP 70-130'S; LEVOPHED INFUSING AT 3MCG/MIN. PIVOT INFUSING AT 45ML/HR (GOAL) WITH 250ML WATER FLUSHES Q4HR; MINIMAL RESIDUALS. RECTAL TUBE AND URBANO PATENT AND DRAINING TO GRAVITY. PICC TO MARIE DRESSING C/D/I. SEE SHIFT ASSESSMENT FOR FULL ASSESSMENT.
--- NOTE | 2021-04-09 00:55 | NUR ---
JACQUELINE LORENZANA CALLED UNIT AT 0000 RETURNING THE CALLS FROM MARIUM IN THE DAY FROM PALLIATIVE CARE. SALOMÓN STATED THAT HE HAS NOT MADE A DECISION YET REGARDING COMFORT CARE BUT HOPES TO HAVE ONE LATER TODAY. WHEN ASKED WHAT TIME HE WOULD BE AVAILABLE IN THE AM FOR PALLIATIVE CARE TO CONNECT WITH HIM, HE STATED AT 1200 HE WOULD BE AVAILABLE. ENDED CONVERSATION WITH JACQUELINE ON PT. SALOMÓN TEARFULL AND CONFLICTED ABOUT DICISION.
[2021-04-09 05:09] LABS: BASOPHILS ABSOLUTE AUTO 0.03 K/mm3 (0.00-0.23); BASOPHILS PERCENT AUTO 0 % (0-2); EOSINOPHILS ABSOLUTE AUTO 0.29 K/mm3 (0.00-0.68); EOSINOPHILS PERCENT AUTO 1 % (0-6); Hematocrit 38.2 % (33.0-51.0); Hemoglobin 12.5 g/dL (11.5-16.0); IMMATURE GRAN ABSOLUTE AUTO 0.32 K/mm3 (0.00-0.10); IMMATURE GRAN PERCENT AUTO 2 % (0-1); LYMPHOCYTES PERCENT AUTO 7 % (21-46); MONOCYTES ABSOLUTE AUTO 0.88 K/mm3 (0.16-1.47); MONOCYTES PERCENT AUTO 4 % (4-13); Mean Corpuscular HGB 31.3 pg (26.0-34.0); Mean Corpuscular HGB Conc 32.7 g/dL (31.5-36.5); Mean Corpuscular Volume 96 fL (80-100); Mean Platelet Volume 10.1 fL (9.1-12.4); NEUTROPHILS ABSOLUTE AUTO 17.19 K/mm3 (1.96-9.15); NEUTROPHILS PERCENT AUTO 86 % (41-73); Platelet Count 309 K/mm3 (150-400); RDW Coefficient Variation 14.4 % (11.7-14.2); RDW Standard Deviation 49.4 fL (35.1-46.3); White Blood Cell Count 20.01 K/mm3 (4.00-11.30)
[2021-04-09 05:36] LABS: Albumin, Blood 2.5 g/dL (3.4-5.0); Anion Gap 6 mmol/L (6-16); Blood Urea Nitrogen 33 mg/dL (8-24); Bun/Creatinine Ratio 82.7 (12.0-20.0); CO2, Blood 24 mmol/L (21-32); Calcium, Blood 8.6 mg/dL (8.5-10.1); Chloride, Blood 114 mmol/L (98-108); Glomerular Filtration Rate >60 (60-); Glucose, Blood 159 mg/dL (70-99); Phosphorus, Blood 3.2 mg/dL (2.5-4.9); Potassium, Blood 3.6 mmol/L (3.5-5.5); Sodium, Blood 144 mmol/L (136-145)
--- NOTE | 2021-04-09 06:17 | NUR ---
END OF SHIFT SUMMARY PT CONT TO BE INTUBATED WITH VENT SETTINGS AC 16, TV 450, PEEP 5, FIO2 30%; SWITCHED FROM SPONT TO AC AT 2029. PT OCCATIONALLY AND MINIMALLY ANSWERS Y/N QUESTIONS WITH HEAD NODS, DOES NOT FOLLOW DIRECTION AND MINIMAL MOVEMENT FROM LT HAND; PROPOFOL INFUSING AT 30MCG/KG/MIN; FENTANYL LITHOGRAPHIC PLATE MAKER APPRENTICE INFUSING AT 25MCG/MIN; CPOT SCORE 1-5, FENTANYL PUSHES AVAILABLE, GIVEN, AND HELPFUL. AFEBRILE. HR 60-70'S. SBP 100-120; LEVOPHED INFUSING AT 2MCG/MIN. PIVOT INFUSING AT 45ML/HR (GOAL) WITH 250ML WATER FLUSHES Q4HR. RECTAL TUBE AND URBANO PATENT AND DRAINING TO GRAVITY. SWELLING TO NECK SLOWLY INCREASED T/O SHIFT, CREPITUS NOTED OVER CHEST, SHOULDERS, UP NECK, AND BACK OF NECK. WILL REPORT TO AM RN WHEN AVAILABLE.
--- NOTE | 2021-04-09 08:55 | NUR ---
ASSUMED CARE OF PT, REPORT RCV'D FROM ISAURO TORRES. PT INTUBATED AND SEDATED. VENT SETTINGS AC 16/450/5/30%, SATS>90%. LUNG SOUNDS CLEAR, MINIMAL SECRETIONS FROM ETT. PT OPENS EYES TO VERBAL AND NOXIOUS STIMULI, PT FAILS TO FOLLOW COMMANDS AT THIS TIME. PROPOFOL @30 MCG/KG/MIN, FENTANYL GTT @ 25 MCG/HR. LEVOPHED @ 4 UNITS/HR TO MAINTAIN MAP>65. PT HAS EXTENSIVE FACIAL AND NECK SWELLING WITH CREPITUS L>R, PHYSICIANS AWARE. SEE FULL SHIFT ASSESSMENT.
--- NOTE | 2021-04-09 13:00 | NUR ---
PALLIATIVE CARE SPOKE WITH PT'S GRANDSON THIS AFTERNOON. GRANDSON DEFERING COMFORT CARE DECISION TO FAMILY FRIEND "POONAM". DECISION FOR IMMEDIATE COMFORT CARE PER POONAM. POONAM WILL BE HERE WITHIN THE HOUR. COMFORT CARE ORDERS PLACED.
--- NOTE | 2021-04-09 13:45 | NUR ---
PAL CARE NOTE: FAMILY CONFERENCE BY PHONE WITH SON EVELYN and then at his direction and delegation of decision making to pt's life long friend, Queta Townsend [phone]. I spent 20-30 minutes on phone with Evelyn to update on current status and answer his questions. He had discussed withdrawl of ventilator with Dr Emanuel over the weekend and understands that pt's chance of recovering after extubation is grim due to continued prfound weakness and lack of cognitive response. Evelyn was tearful, quiet, unable to say out loud what medical decisions he would like. I listened, supported, encouraged family/friend support and sharing of decision making. Evelyn indicated that he would like his mom's friend Queta to be present for extubation and transition to comfort care. Queta has offered to be medical decision maker and wants to be with pt for extubation. Per [place]'s request, Queta Townsend will be our person to contact from now on and Medical decision maker. Queta will keep Evelyn informed and updated. I invited Evelyn to call me at any time with questions or for updates if he feels up to it. Dr Parker, Dr Ivey and DR Soni updated. Comfort care orders received and entered per Dr Parker. Nursing and CM updated. Pt's bedside SENIOR COMMUNICATIONS ENGINEER input included in comfort care plan of care. I met Queta in ICU and spent time with her outside of Laurita's room. She is in frequent communication with Evelyn. PPE provided for Queta who went in room to have quiet time with pt prior to extubation. TIme spent listening to reminiscing and talking about their relationship. She is calm, appropriately tearful and anticipatorily grieving. She states Laurita would not want this and is grateful Laurita will be "set free" from the ventilator on her Birthday. She is aware that pt may cont to breathe on her own for an undermined amount of time after extubation. Educated on comfort care medications and care that would be employed t/o pt's remainder of her stay. Another Pal Care RN, Marisel Cobos, was present during my conversation with misty Rivas, to witness conversation.
--- NOTE | 2021-04-09 17:17 | NUR ---
PT MADE COMFORT CARE. MEDICATED PER EMAR FOR PT COMFORT. PT'S FRIEND POONAM REMAINS AT BEDSIDE.
--- NOTE | 2021-04-09 18:05 | NUR ---
PT TIME OF 1752, CONSULTING MANAGER NOTIFIED. POONAM (FRIEND) AT BEDSIDE, SHE TOOK PT BELONGINGS. POONAM TO CALL [facility] FOR HOME PREFERENCE.
--- NOTE | 2021-04-09 18:36 | NUR ---
[facility] CONTACTED FOR BODY RETRIEVAL
--- NOTE | 2021-04-09 19:57 | NUR ---
RECTAL TUBE AND URBANO REMOVED. DC'D WITH NO BELONGINGS.
== END 2021-04-09 17:53 | DRG 870 ==
LOC: ER 05:49 → MEDS 09:50 → ICUE 03-20 14:40 → MEDS 03-20 14:40 → SURS 03-21 13:08 → MEDS 03-21 13:09 → PCU 03-22 08:06 → ICUE 03-24 10:30
PROVIDERS: Emergency Medicine; Internal Medicine; Internal Medicine Critical Care Medicine; Internal Medicine Pulmonary Disease; Pharmacist; ADMIT Internal Medicine
PROC: XW033E5 Introduction of Remdesivir Anti-infective into Peripheral Vein, Percutaneous Approach, New Technology Group 5 (ICD-10-PCS; 2021-03-20)
PROC: 3E0DX3Z Introduction of Anti-inflammatory into Mouth and Pharynx, External Approach (ICD-10-PCS; 2021-03-20)
PROC: 5A09357 Assistance with Respiratory Ventilation, Less than 24 Consecutive Hours, Continuous Positive Airway Pressure (ICD-10-PCS; principal; 2021-03-24)
PROC: 5A1955Z Respiratory Ventilation, Greater than 96 Consecutive Hours (ICD-10-PCS; 2021-03-24)
PROC: 0BH17EZ Insertion of Endotracheal Airway into Trachea, Via Natural or Artificial Opening (ICD-10-PCS; 2021-03-24)
PROC: 02HV33Z Insertion of Infusion Device into Superior Vena Cava, Percutaneous Approach (ICD-10-PCS; 2021-03-24)
PROC: 3E043XZ Introduction of Vasopressor into Central Vein, Percutaneous Approach (ICD-10-PCS; 2021-03-24)
DX: A41.89 Other specified sepsis (principal); G93.41 Metabolic encephalopathy; J18.9 Pneumonia, unspecified organism; G92 Toxic encephalopathy; U07.1 COVID-19; J96.01 Acute respiratory failure with hypoxia; N39.0 Urinary tract infection, site not specified; J44.0 Chronic obstructive pulmonary disease with (acute) lower respiratory infection; J93.9 Pneumothorax, unspecified; Z51.5 Encounter for palliative care; R65.20 Severe sepsis without septic shock; Z66 Do not resuscitate; R19.7 Diarrhea, unspecified; L30.4 Erythema intertrigo; J98.2 Interstitial emphysema; A40.1 Sepsis due to streptococcus, group B; E86.0 Dehydration; M79.7 Fibromyalgia; Z78.1 Physical restraint status; I10 Essential (primary) hypertension; E78.5 Hyperlipidemia, unspecified; F41.9 Anxiety disorder, unspecified; F31.9 Bipolar disorder, unspecified; K21.9 Gastro-esophageal reflux disease without esophagitis; Z88.0 Allergy status to penicillin; Z79.82 Long term (current) use of aspirin; Z79.899 Other long term (current) drug therapy; Z98.890 Other specified postprocedural states
CPT/HCPCS: 31500; 36415; 36556; 36569; 36600; 51702; 70450; 71045; 71046; 71260; 74176; 80048; 80053; 80069; 80202; 81001; 82565; 82803; 82947; 83605; 83735; 83880; 84100; 84132; 84145; 84484; 85025; 85027; 85379; 85651; 86140; 87040; 87070; 87086; 87205; 87493; 93005; 93010; 94002; 94003; 94640; 94660; 94664; 94760; 94761; 94762; 96365; 96366; 96367; 96372; 96375; 97110; 97116; 97162; 97166; 97530; 99285-25; A9270; C1751; C9113; G0378; J0456; J0696; J1650; J1815; J1956; J2060; J2270; J2370; J2405; J2704; J3010; J3370; J3480; J7030; J7040; J7050; J7060; P9612; Q9967; U0004